=== PATIENT | female | born 1965 | race Caucasian/White ===

== ENCOUNTER 2018-03-10 02:18 | Inpatient (IN) ==
--- NOTE | 2018-03-10 02:38 | Emergency Department Note ---
Disposition Clinical Impression: Pneumoperitoneum, Intra-abdominal abscess Disposition: Admitted As Inpatient Condition: Serious Abdominal Pain HPI - General Chief Complaint: ED Abdominal Pain Stated Complaint: "Lower Abd Pain" Time Seen by Provider: 03/10/18 02:31 Source: patient, family Mode of arrival: private vehicle Limitations: no limitations Nursing Notes Reviewed: Yes Vital Signs Reviewed: Yes - History of Present Illness Pt Subjective Complaint: abdominal pain Onset (ago): month(s) (1-2 months of mild intermittent discomfort, significant pain began this evening) Consistency: constant (for past 2 hours) Location: diffuse, suprapubic Pain Severity: severe Pain Scale: 10 Quality: fullness Radiation: none Migration to: no migration Improves with: nothing Worsens with: nothing Context: other (unknown - no changes in diet, activity, meds. No supplements, no recent travel.) Associated symptoms: Reports: diarrhea (several episodes of watery stool this evening - no blood), chills, constipation. Denies: fever, dysuria Treatments prior to arrival: none - Related Data Allergies Allergy/AdvReac Type Severity Reaction Status Date / Time No Known Allergies Allergy Unverified 03/10/18 03:43 All systems ED: reviewed and negative except as stated. Review of Systems: As Per HPI Constitutional: Reports: chills. Denies: fever, weakness Cardiovascular: Denies: chest pain, palpitations, syncope Respiratory: Denies: dyspnea Gastrointestinal: Reports: as per HPI, abdominal pain, nausea, diarrhea. 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 Made a joke) - Head Head exam: atraumatic, normocephalic, normal inspection - Eye Eye exam: Present: normal appearance. Absent: scleral icterus, conjunctival injection, periorbital swelling - ENT ENT exam: mucous membranes dry - Neck Neck exam: Present: normal inspection - Respiratory Respiratory exam: Present: normal lung sounds bilaterally. Absent: respiratory distress - Cardiovascular Cardiovascular exam: Present: regular rate, normal rhythm - Abdominal Exam Abdominal exam: Present: soft, tenderness. Absent: distention, guarding, rebound, rigidity, ascites, mass, pulsatile mass Abdominal tenderness: Present: suprapubic, diffuse, moderate - Extremities Exam Extremities exam: Present: normal inspection - Neurological Exam Neurological exam: Present: alert, oriented X3, CN II-XII intact - Psychiatric Psychiatric exam: Present: normal affect, normal mood - Skin Skin exam: Present: warm, dry, intact, normal color Course Course Narrative: Otherwise healthy 52-year-old female presents from home for evaluation of abdominal pain. She states that it started around midnight. She was not sleeping at the time. States that she has had this pain off and on for about a month and was uncomfortable, so she had not fallen asleep yet. The pain continued to escalate so she came in for evaluation. She states, "I think I am just full of crap." She laughs and elaborates that she has had problems with constipation off and on for the past two months. Prior to that she had no bowel issues. She has had no change in diet, activity or medications. She has had a bilateral tubal ligation. No other abdominal surgeries. She has had no recent travel. She describes having several episodes of watery, non-bloody diarrhea this evening. No vomiting. Labs, fluids and meds ordered. Patient's pain increased. Fentanyl ordered. CT ordered. Case discussed with Dr. Mcgee. He evaluated the patient and agrees with the plan. Patient has leukocytosis 20 with prevelence of Neutrophils. BMP is normal except glucose of 168 - Na:134, K:3.9, Cl: 100, CO2: 23, BUN:17, Cr: 0.81, Glucose 168 LFTs pending - Consultations Consultation #1: Dr. Smith of [facility] called to discuss the CT abdomen and pelvis. Patient has free air from a ruptured diverticuli with an intra-abdominal abscess. Time: 04:13 Consultation #2: Case discussed with Dr. Cisneros. He states that he will be coming in to see the patient. He agrees with the plan to use Zosyn Time: 04:16 Consultation #3: Dr. Cisneros is at bedside. Vitals stable. Patient sitting up, watching TV, still able to smile and joke. Pain improved after meds. Time: 05:17 Vital Signs Temperature 98.5 F 03/10/18 02:22 Pulse Rate 94 03/10/18 02:22 Respiratory Rate 12 03/10/18 02:22 Blood Pressure 154/72 03/10/18 02:22 O2 Sat by Pulse Oximetry 98 03/10/18 02:22 Temperature 98.5 F 03/10/18 02:22 Pulse Rate 94 03/10/18 02:22 Respiratory Rate 12 03/10/18 02:22 Blood Pressure 154/72 03/10/18 02:22 O2 Sat by Pulse Oximetry 98 03/10/18 02:22 Oxygen Delivery Oxygen Delivery Room Air Abdominal Pain - Medical Records Medical records reviewed: Yes I reviewed the patient's medical records. - Lab Data Lab results reviewed: Yes I reviewed the patient's lab results. Lab results narrative: Laboratory Last Values WBC 20.8 K/mcL (4.3-11.1) H 03/10/18 02:39 RBC 5.00 M/mcL (3.82-4.97) H 03/10/18 02:39 Hgb 14.2 g/dL (11.5-15.4) 03/10/18 02:39 Hct 42.7 % (35.3-44.9) 03/10/18 02:39 MCV 85.4 fL (83.0-100.0) 03/10/18 02:39 MCH 28.4 pg (28.0-33.3) 03/10/18 02:39 MCHC 33.3 g/dL (31.6-35.5) 03/10/18 02:39 RDW 12.5 % (11.5-14.5) 03/10/18 02:39 Plt Count 366 K/mcL (140-400) 03/10/18 02:39 MPV 9.8 fL (9.4-12.4) 03/10/18 02:39 Immature Gran % 0.5 % (0-4) 03/10/18 02:39 Seg Neutrophils % 83.5 % 03/10/18 02:39 Lymphocytes % 8.5 % 03/10/18 02:39 Monocytes % 7.0 % 03/10/18 02:39 Eosinophils % 0.2 % 03/10/18 02:39 Basophils % 0.3 % 03/10/18 02:39 Neutrophils # 17.3 K/mcL (1.6-8.9) H 03/10/18 02:39 Lymphocytes # 1.8 K/mcL (0.6-4.6) 03/10/18 02:39 Monocytes # 1.5 K/mcL (0.0-1.3) H 03/10/18 02:39 Eosinophils # 0.0 K/mcL (0.0-0.6) 03/10/18 02:39 Basophils # 0.1 K/mcL (0.0-0.2) 03/10/18 02:39 Sodium 134 mEq/L (136-145) L 03/10/18 02:39 Potassium 3.9 mEq/L (3.5-5.1) 03/10/18 02:39 Chloride 100 mEq/L (98-107) 03/10/18 02:39 Carbon Dioxide 23 mEq/L (23-29) 03/10/18 02:39 BUN 17 mg/dL (6-20) 03/10/18 02:39 Creatinine 0.81 mg/dL (0.60-1.20) 03/10/18 02:39 Est GFR ( Amer) > 60 (> 60) 03/10/18 02:39 Est GFR (Non-Af Amer) > 60 (> 60) 03/10/18 02:39 BUN/Creatinine Ratio 21 (6-26) 03/10/18 02:39 Glucose 168 mg/dL (70-105) H 03/10/18 02:39 Calculated Osmolality 283 (280-300) 03/10/18 02:39 Calcium 9.1 mg/dL (8.6-10.3) 03/10/18 02:39 AST 19 Units/L (13-39) 03/10/18 02:39 ALT 33 Units/L (7-52) 03/10/18 02:39 Alkaline Phosphatase 158 Units/L (34-104) H 03/10/18 02:39 Serum Total Protein 7.9 g/dL (6.4-8.9) 03/10/18 02:39 Albumin 3.7 g/dL (3.5-5.7) 03/10/18 02:39 Globulin 4.2 g/dL (2.4-3.5) H 03/10/18 02:39 Albumin/Globulin Ratio 0.9 (1.1-2.2) L 03/10/18 02:39 Urine Color [place] (Yellow) A 03/10/18 02:53 Urine Clarity Clear (Clear) 03/10/18 02:53 Urine pH 6.0 pH Units (5.0-8.0) 03/10/18 02:53 Ur Specific [place] > 1.030 (1.010-1.025) H 03/10/18 02:53 Urine Protein 100 mg/dL (Neg-Trace) H 03/10/18 02:53 Urine Glucose (UA) Normal mg/dL (Normal) 03/10/18 02:53 Urine Ketones 40 mg/dL (Negative) H 03/10/18 02:53 Urine Blood Negative (Negative) 03/10/18 02:53 Urine Nitrite Positive (Negative) A 03/10/18 02:53 Urine Bilirubin Moderate (Negative) H 03/10/18 02:53 Urine Urobilinogen >=8.0 mg/dL (Normal) H 03/10/18 02:53 Ur Leukocyte Esterase Small (Negative) H 03/10/18 02:53 Urine Microscopic RBC 5-15 per hpf (0-3) H 03/10/18 02:53 Urine Microscopic WBC 15-30 per hpf (0-3) H 03/10/18 02:53 Ur Squamous Epith Cells Many per lpf (None-Few) H 03/10/18 02:53 Urine Bacteria Moderate per hpf (None-Few) H 03/10/18 02:53 Urine Mucus Many (Few) H 03/10/18 02:53 Ur Culture Indicated? NO. (NO) A 03/10/18 02:53 - Radiology Data Radiology results reviewed: Yes I reviewed the patient's radiology results. Abdomen/Pelvis CT 03/10/18 03:39 IMPRESSION: Pneumoperitoneum, most likely related to perforated sigmoid diverticulitis. There is a pelvic abscess posterior to the uterus. Critical results were called by Dr. Norbert Smith MD to July Aquino on 03/10/2018 at 04:11. D/ / Norbert Smith MD / Norbert Smith MD Interpreting Provider: Norbert Smith MD
[2018-03-10] MEDS ORDERED: 0.9 % Sodium Chloride 1,000 ML IVC ONE (02:40)
[2018-03-10] MEDS ORDERED: Ondansetron 4 MG/2 ML VIAL IVP ONE (02:40)
[2018-03-10] MEDS ORDERED: Ketorolac 30 MG/ML VIAL IVP ONE (02:40)
[2018-03-10 02:52] LABS: Basophils # 0.1 K/mcL (0.0-0.2); Basophils % 0.3 %; Eosinophils % 0.2 %; Hematocrit 42.7 % (35.3-44.9); Hemoglobin 14.2 g/dL (11.5-15.4); Immature Granulocytes % 0.5 % (0-4); Lymphocytes # 1.8 K/mcL (0.6-4.6); Lymphocytes % 8.5 %; Mean Corpuscular HGB Conc 33.3 g/dL (31.6-35.5); Mean Corpuscular Hemoglobin 28.4 pg (28.0-33.3); Mean Corpuscular Volume 85.4 fL (83.0-100.0); Mean Platelet Volume 9.8 fL (9.4-12.4); Monocytes # 1.5 K/mcL (0.0-1.3); Neutrophils # 17.3 K/mcL (1.6-8.9); Platelet Count 366 K/mcL (140-400); Red Cell Distribution Width 12.5 % (11.5-14.5); Segmented Neutrophils % 83.5 %
[2018-03-10 03:01] LABS: Bilirubin,Urine Moderate (Negative); Blood,Urine Negative (Negative); Clarity,Urine Clear (Clear); Color,Urine Orange (Yellow); Glucose,Urine (UA) Normal (Normal); Ketones,Urine 40 mg/dL (Negative); Leukocyte Esterase,Urine Small (Negative); Nitrite,Urine Positive (Negative); Protein,Urine 100 mg/dL (Neg-Trace); Specific Gravity,Urine > 1.030 (1.010-1.025); Urobilinogen,Urine >=8.0 mg/dL (Normal)
[2018-03-10 03:03] LABS: Bacteria,Urine Moderate per hpf (None-Few); Squamous Epithelial Cell,Urine Many per lpf (None-Few); WBC,Urine 15-30 per hpf (0-3)
[2018-03-10 03:16] LABS: Mucus,Urine Many (Few)
[2018-03-10] MEDS ORDERED: *HR* FentaNYL (PF) 200 MCG/4 ML SYRINGE IVP ONE (04:10)
[2018-03-10] MEDS ORDERED: *HR* FentaNYL (PF) 100 MCG/2 ML VIAL ONE ×2 (04:11→15:29)
[2018-03-10] MEDS ORDERED: Piperacillin/Tazobactam 4.5 GM in 0.9 % Sodium Chloride Mini Bag 100 ML IVPB ONE (04:13)
[2018-03-10 04:26] LABS: Alanine Aminotransferase 33 Units/L (7-52); Albumin 3.7 g/dL (3.5-5.7); Albumin/Globulin Ratio 0.9 (1.1-2.2); Alkaline Phosphatase 158 Units/L (34-104); Aspartate Amino Transferase 19 Units/L (13-39); BUN/Creatinine Ratio 21 (6-26); Blood Urea Nitrogen 17 mg/dL (6-20); Calcium 9.1 mg/dL (8.6-10.3); Carbon Dioxide 23 mEq/L (23-29); Chloride 100 mEq/L (98-107); Globulin 4.2 g/dL (2.4-3.5); Glucose 168 mg/dL (70-105); Osmolality,Calculated 283 (280-300); Potassium 3.9 mEq/L (3.5-5.1); Sodium 134 mEq/L (136-145); Total Protein 7.9 g/dL (6.4-8.9); eGFR For Non-African Americans > 60 (> 60)
[2018-03-10] MEDS ORDERED: Piperacillin/Tazobactam 3.375 GM in 0.9 % Sodium Chloride Mini Bag 100 ML IVPB ONE (04:30)
[2018-03-10] MEDS ORDERED: *HR* FentaNYL (PF) 100 MCG/2 ML VIAL IVP ONE ×3 (04:30→15:28)
[2018-03-10 05:23] LABS: Bilirubin,Direct 0.2 mg/dL (0.0-0.2); Bilirubin,Indirect 0.4 mg/dL (0.0-1.2); Bilirubin,Total 0.6 mg/dL (0.3-1.0)
--- NOTE | 2018-03-10 05:43 | General Surg History&Physical ---
Date of Encounter: 03/10/18 Time of Encounter: 05:20 Assessment and Plan (1) Colonic diverticular abscess Current Visit: Yes Status: Acute The assessment and plan as outlined above was discussed with the patient and/or family members who expressed understanding and agreement. All questions were answered. The patient appears to have a perforated diverticular abscess. She will be admitted to the hospital and treated with intravenous antibiotics. She will require CAT scan directed drainage of the abscess. If this is not possible, early Couch's procedure may be indicated. I shared this information with the patient and her spouse. History of Present Illness Chief complaint: Abdominal pain HPI: Ms. Cisneros is a 52 year old female Who is had abdominal discomfort for almost a month. She is had pressure in the left lower quadrant. The pressure has been worse with bowel movements. For the last 5 days, she has had shakes chills fever associated with left lower quadrant abdominal pain. She had worsening pain with bowel movements. Her last bowel movement was yesterday. She developed severe left lower quadrant abdominal pain and sought evaluation in emergency a CAT scan was ordered and diverticular abscess was identified surgery consultation was obtained and evaluated the patient in the emergency room The patient reports no previous colonoscopy and no previous hospitalizations. She denies rectal bleeding. She denies chronic constipation or changes with her bowel habits. She does have shakes chills or fever and is complaining bitterly of left lower quadrant abdominal pain. I personally reviewed the CAT scan area she has a large pelvic abscess below the sigmoid colon extending into the pelvis. There are dots of free air around the diaphragm and some extraluminal air in abscess cavity. Visible diverticuli are present in the sigmoid colon Past Med Surg Social Fam HX - Past Medical History Medical history: no medical history Psychiatric history: no psych history - Past Surgical History Additional surgical history: tubes tide - Social History Smoking Status: Never smoker Smokeless Tobacco Status: No Alcohol use: occasionally Drug use: none Medications and Allergies 3 Allergy/AdvReac Type Severity Reaction Status Date / Time No Known Allergies Allergy Unverified 03/10/18 03:43 Review of Systems All systems PM: The remainder of the systems were reviewed and are negative General Surgery Exam Initial Vital Signs Temp Pulse Resp BP Pulse Ox 98.5 F 94 12 154/72 98 03/10/18 02:22 03/10/18 02:22 03/10/18 02:22 03/10/18 02:22 03/10/18 02:22 - General physical appearance well developed, well nourished, severe pain, obese - Respiratory normal expansion, normal respiratory effort, clear to percussion, clear to auscultation - Cardiovascular Cardiovascular exam: Present: RRR, no murmurs/rubs/gallops - Abdomen Abdomen general surgery: Present: guarding, rebound Abdominal Tenderness: Present: LLQ, suprapubic - Neurologic Present: CN 2-12 grossly intact, normal coordination, normal sensation - Psychiatric Psychiatric general surgery: Present: appropriate, oriented to person, oriented to place, oriented to time, speech is normal, memory intact Results - Labs 03/10/18 02:39 03/10/18 02:39 Abnormal lab results WBC 20.8 K/mcL (4.3-11.1) H 03/10/18 02:39 RBC 5.00 M/mcL (3.82-4.97) H 03/10/18 02:39 Neutrophils # 17.3 K/mcL (1.6-8.9) H 03/10/18 02:39 Monocytes # 1.5 K/mcL (0.0-1.3) H 03/10/18 02:39 Sodium 134 mEq/L (136-145) L 03/10/18 02:39 Glucose 168 mg/dL (70-105) H 03/10/18 02:39 Alkaline Phosphatase 158 Units/L (34-104) H 03/10/18 02:39 Globulin 4.2 g/dL (2.4-3.5) H 03/10/18 02:39 Albumin/Globulin Ratio 0.9 (1.1-2.2) L 03/10/18 02:39 Urine Color [place] (Yellow) A 03/10/18 02:53 Ur Specific [place] > 1.030 (1.010-1.025) H 03/10/18 02:53 Urine Protein 100 mg/dL (Neg-Trace) H 03/10/18 02:53 Urine Ketones 40 mg/dL (Negative) H 03/10/18 02:53 Urine Nitrite Positive (Negative) A 03/10/18 02:53 Urine Bilirubin Moderate (Negative) H 03/10/18 02:53 Urine Urobilinogen >=8.0 mg/dL (Normal) H 03/10/18 02:53 Ur Leukocyte Esterase Small (Negative) H 03/10/18 02:53 Urine Microscopic RBC 5-15 per hpf (0-3) H 03/10/18 02:53 Urine Microscopic WBC 15-30 per hpf (0-3) H 18 02:53 Ur Squamous Epith Cells Many per lpf (None-Few) H 03/10/18 02:53 Urine Bacteria Moderate per hpf (None-Few) H 03/10/18 02:53 Urine Mucus Many (Few) H 03/10/18 02:53 Ur Culture Indicated? NO. (NO) A 03/10/18 02:53 All other labs normal. - Imaging CT scan - abdomen: image reviewed (I personally reviewed the CAT scan of the abdomen. Findings are consistent with pelvic abscess from perforated diverticulum. Small dots of free air or present around the diaphragm. Extraluminal free air is present in the abscess cavity)
[2018-03-10 05:46] LABS: INR 1.4; Prothrombin Time 15.3 Seconds (9.4-12.1)
[2018-03-10 05:48] LABS: Activated Partial Thrombo Time 32.8 Seconds (26.0-36.0)
[2018-03-10] MEDS ORDERED: *HR* Metoprolol 5 MG/5 ML VIAL IVP PRN ×3 (06:34→07:45)
[2018-03-10] MEDS ORDERED: *HR* OxyCODONE/APAP 10/325 TABLET PO ONE (06:35)
[2018-03-10] MEDS ORDERED: *HR* OxyCODONE/APAP 10/325 TABLET PO PRN (07:29)
[2018-03-10] MEDS: 0.9 % Sodium Chloride 1,000 ML IVC SCH ×2 (07:59→18:57)
[2018-03-10] MEDS: Ondansetron 4 MG/2 ML VIAL IVP PRN ×2 (07:59→16:37)
[2018-03-10] MEDS ORDERED: Piperacillin/Tazobactam 3.375 GM in 0.9 % Sodium Chloride Mini Bag 100 ML IVPB SCH (08:00)
[2018-03-10] MEDS: Piperacillin/Tazobactam 3.375 GM in 0.9 % Sodium Chloride Mini Bag 100 ML IVPB SCH ×2 (11:02→19:53)
[2018-03-10] MEDS ORDERED: *HR* Morphine 2 MG/ML SYRINGE IVP ONE (12:08)
[2018-03-10] MEDS ORDERED: 0.9 % Sodium Chloride 500 ML ONE (15:16)
[2018-03-10] MEDS ORDERED: *HR* Midazolam HCl 2 MG/2 ML VIAL ONE (15:28)
[2018-03-10] MEDS ORDERED: *HR* Midazolam HCl 2 MG/2 ML VIAL IVP ONE (15:28)
--- NOTE | 2018-03-10 15:28 | Pre-Sedation Evaluation ---
Pre-sedation evaluation - Pre-sedation checklist Date of procedure: 03/10/18 Procedure: percutaneous abscess drain Recent Vitals: Last Vital Signs Temp 99.0 F 03/10/18 12:04 Pulse 108 03/10/18 12:04 Resp 16 03/10/18 12:04 BP 153/94 03/10/18 12:04 Pulse Ox 100 03/10/18 12:04 H&P (including ROS) documented in medical record: Yes Previous reaction to sedatives/anesthetics: No Dietary Status: NPO after Midnight Airway Assessment: Patient can open mouth completely, TMJ function normal Dentition: No loose teeth or bridges Possible difficult airway: No ASA Classification *see protocol: CLASS II-Mild systemic disease Plan of Care: Pt appropriate candidate for procedure/moderate/conscious sedation Cardiac Registry (Cardio Only) - Functional Capacity - Clincal Frailty Scale
[2018-03-10] MEDS ORDERED: Isovue-370 500 ML INFUS..BTL IV ONE (15:40)
--- NOTE | 2018-03-10 16:12 | IR Procedure Note ---
Date of procedure: 03/10/18 Consent Obtained: Written consent Timeout: Correct patient and procedure verified, Correct site verified, Time out performed, Skin prep completed Local anesthetic: Lidocaine 1% Indications: perforated diverticulitis with abscess Procedure Performed: percutaneous abscess drain Was there an clinical lab assistant present: No Site/Technique: right transgluteal drainage Results/Findings: pus aspirated Estimated blood loss (cc): 0 Post Procedure Treatment Plan: drain to bulb Specimen: 5 cc pus
[2018-03-10] MEDS: *HR* OxyCODONE/APAP 10/325 TABLET PO PRN (16:34)
[2018-03-10] MEDS: OXYCODONE Oral CONC 10 MG/0.5 ML ORAL.SYG SL PRN (18:55)
[2018-03-10] MEDS ORDERED: Acetaminophen 325 MG TABLET PO PRN (19:24)
[2018-03-11] MEDS: *HR* OxyCODONE/APAP 10/325 TABLET PO PRN (02:18)
[2018-03-11] MEDS: 0.9 % Sodium Chloride 1,000 ML IVC SCH ×2 (04:20→15:47)
[2018-03-11] MEDS: Piperacillin/Tazobactam 3.375 GM in 0.9 % Sodium Chloride Mini Bag 100 ML IVPB SCH ×3 (04:22→21:21)
[2018-03-11 05:58] LABS: Hematocrit 38.2 % (35.3-44.9); Mean Corpuscular HGB Conc 31.7 g/dL (31.6-35.5); Mean Corpuscular Hemoglobin 27.8 pg (28.0-33.3); Mean Corpuscular Volume 87.8 fL (83.0-100.0); Platelet Count 324 K/mcL (140-400); Red Blood Count 4.35 M/mcL (3.82-4.97); Red Cell Distribution Width 13.2 % (11.5-14.5)
[2018-03-11 06:43] LABS: Hemoglobin 12.1 g/dL (11.5-15.4)
[2018-03-11 06:54] LABS: BUN/Creatinine Ratio 25 (6-26); Blood Urea Nitrogen 25 mg/dL (6-20); Carbon Dioxide 24 mEq/L (23-29); Chloride 106 mEq/L (98-107); Glucose 126 mg/dL (70-105); Osmolality,Calculated 294 (280-300); Potassium 4.5 mEq/L (3.5-5.1); Sodium 139 mEq/L (136-145); eGFR For Non-African Americans 57 (> 60)
[2018-03-11 08:07] LABS: Acinetobacter baumannii by PCR Not Detected (Not Detect); Candida albicans by PCR Not Detected (Not Detect); Candida glabrata by PCR Not Detected (Not Detect); Candida krusei by PCR Not Detected (Not Detect); Candida parapsilosis by PCR Not Detected (Not Detect); Candida tropicalis by PCR Not Detected (Not Detect); Enterobacter cloacae Cmplx PCR Not Detected (Not Detect); Enterobacteriaceae by PCR Not Detected (Not Detect); Enterococcus by PCR Not Detected (Not Detect); Escherichia coli by PCR Not Detected (Not Detect); Klebsiella oxytoca by PCR Not Detected (Not Detect); Klebsiella pneumoniae by PCR Not Detected (Not Detect); Proteus by PCR Not Detected (Not Detect); Pseudomonas aeruginosa by PCR Not Detected (Not Detect); Serratia marcescens by PCR Not Detected (Not Detect); Staphylococcus aureus by PCR Not Detected (Not Detect); Staphylococcus by PCR Not Detected (Not Detect); Streptococcus agalactiae(B)PCR Not Detected (Not Detect); Streptococcus by PCR Not Detected (Not Detect); Streptococcus pneumoniae PCR Not Detected (Not Detect); Streptococcus pyogenes (A) PCR Not Detected (Not Detect); blaKPC Carbapenem-Resist Gene Not Detected (Not Detect); mecA Methicillin-Resist Gene Not Detected (Not Detect); vanA/B Vancomycin-Resist Genes Not Detected (Not Detect)
[2018-03-11 08:29] LABS: Calcium 8.8 mg/dL (8.6-10.3)
[2018-03-11 08:48] LABS: Lymphocytes # 0.7 K/mcL (0.6-4.6); Neutrophils # 15.3 K/mcL (1.6-8.9); Reactive Lymphocytes Present (Not Present)
[2018-03-11 08:49] LABS: Platelet Estimate Normal (Normal)
[2018-03-11] MEDS ORDERED: OXYCODONE Oral CONC 10 MG/0.5 ML ORAL.SYG SL PRN (09:02)
--- NOTE | 2018-03-11 09:10 | General Surgery Progress Note ---
<Phyllis Rosa - Last Filed: 03/11/18 09:05> Date of Encounter: 03/11/18 Time of Encounter: 07:15 - Assessment and Plan (1) Perforation of sigmoid colon due to diverticulitis Current Visit: Yes Status: Acute Pneumoperitoneum, most likely related to perforated sigmoid diverticulitis with notable pelvic abscess posterior to the uterus S/P posterior IR drain placement on 03/10/2018. She states her abdominal discomfort is significantly improved after having the drain placed. She reports pain has decreased from an 8 down to a 2. She is afebrile, exam is as expected with resolution of involuntary guarding but some tenderness remains. She is requesting to ambulate in shower which is most appropriate. Plan: -continue IV antibiotics for at least another 48 hours -Limited clear liquid diet, no carbonation, did not advance today -continue IV fluids, supportive care, and discomfort management -May saline lock IV to ambulate and shower -do not let HUMBERTO drain Dangle while patient is in the shower. Suspend the HUMBERTO on a lanyard or other such device while showering. -Stop EP CDs and apply knee-high Brian hose after patient showers. Start heparin 5000 units sub Q BID today -out of bed to chair for all trays including clear liquid trays 3 times daily -ambulate at least TID -incentive spirometry 10 times every hour while awake -consult dietitian for low fiber diet (6 weeks) then diverticulitis diet. Interval plans for follow-up in the office in approximately 6 weeks for colonoscopy -bedside RN to provide education regarding diverticulitis, and signs or symptoms for which to return -continue hospital care as above (2) Colonic diverticular abscess Current Visit: Yes Status: Acute see above Subjective Patient reports: no new complaints, feels better, still having pain, pain is less, voiding w/o difficulty, flatus, no bowel movement, afebrile Narrative: Rosanna states her pain has decreased from an 8 to a 2. She requests to be able to shower and walk. Objective Vital Signs - Last 8 Hours Temp Pulse Resp BP Pulse Ox 03/11/18 07:56 89 03/11/18 07:21 99.2 F 115 18 135/86 89 03/11/18 03:45 98.5 F 104 16 124/81 96 Intake and Output 03/10/18 03/11/18 03/11/18 23:59 07:59 15:59 Intake Total 375 / 375 1020 / 1020 Output Total 0 / 0 Balance 375 / 375 1020 / 1020 Intake: IV Fluids 375 / 375 1000 / 1000 0.9 % Sodium Chloride 1,000 ML 275 / 275 1000 / 1000 @ 100 mls/hr IVC .Q10H [facility] Rx#: [id number] Zosyn 3.375 GM In 0.9 % Sodium 100 / 100 Chloride (Mini-Bag +) 100 ML @ 25 mls/hr IVPB Q8H PETRONA Rx#: [id number] Oral 0 / 0 Output: Urine 0 / 0 Other: # Voids 1 Weight 100.6 kg - General physical appearance well nourished, no distress - Eyes normal ocular movement - ENT normal nares, normal mucosa - Neck Neck exam: trachea midline - Respiratory normal expansion, normal respiratory effort, clear to auscultation - Cardiovascular Cardiovascular exam: Present: RRR - Abdomen Abdomen: Present: bowel sounds present, soft, tender (but improved. involuntary guarding resolved) Hernia: none - Integumentary no rash, no growths - Neurologic normal coordination, normal sensation - Musculoskeletal normal gait, normal posture - Psychiatric oriented to time, oriented to person, oriented to place, speech is normal - Labs 03/11/18 05:38 03/11/18 05:38 Diabetes panel 03/11/18 Range/Units 05:38 Sodium 139 (136-145) mEq/L Potassium 4.5 (3.5-5.1) mEq/L Chloride 106 (98-107) mEq/L Carbon Dioxide 24 (23-29) mEq/L BUN 25 H (6-20) mg/dL Creatinine 1.01 (0.60-1.20) mg/dL Glucose 126 H (70-105) mg/dL Calcium 8.8 (8.6-10.3) mg/dL Calcium panel 03/11/18 Range/Units 05:38 Calcium 8.8 (8.6-10.3) mg/dL Pituitary panel 03/11/18 Range/Units 05:38 Sodium 139 (136-145) mEq/L Potassium 4.5 (3.5-5.1) mEq/L Chloride 106 (98-107) mEq/L Carbon Dioxide 24 (23-29) mEq/L BUN 25 H (6-20) mg/dL Creatinine 1.01 (0.60-1.20) mg/dL Glucose 126 H (70-105) mg/dL Calcium 8.8 (8.6-10.3) mg/dL Adrenal panel 03/11/18 Range/Units 05:38 Sodium 139 (136-145) mEq/L Potassium 4.5 (3.5-5.1) mEq/L Chloride 106 (98-107) mEq/L Carbon Dioxide 24 (23-29) mEq/L BUN 25 H (6-20) mg/dL Creatinine 1.01 (0.60-1.20) mg/dL Glucose 126 H (70-105) mg/dL Calcium 8.8 (8.6-10.3) mg/dL - Imaging CT scan - abdomen: report reviewed CT scan - pelvis: report reviewed Consult Discharge Plan - Plan Referrals: NONE,PCP [Primary Care Provider] - <Johnson Cisneros - Last Filed: 03/11/18 14:59> Date of Encounter: 03/11/18 - Assessment and Plan (1) Colonic diverticular abscess Current Visit: Yes Status: Acute Objective Vital Signs - Last 8 Hours Temp Pulse Resp BP Pulse Ox 03/11/18 10:25 99.6 F 110 16 139/85 98 03/11/18 07:56 89 03/11/18 07:21 99.2 F 115 18 135/86 89 Intake and Output 03/10/18 03/11/18 03/11/18 23:59 07:59 15:59 Intake Total 375 / 375 1020 / 1020 200 / 200 Output Total 0 / 0 Balance 375 / 375 1020 / 1020 200 / 200 Intake: IV Fluids 375 / 375 1000 / 1000 200 / 200 0.9 % Sodium Chloride 1,000 ML 275 / 275 1000 / 1000 @ 100 mls/hr IVC .Q10H [facility] Rx#: [id number] Ofirmev 1,000 mg/100 ml 1,000 100 / 100 mg In 100 ml @ 400 mls/hr IVPB Q6HR [facility] Rx#:[id number] Zosyn 3.375 GM In 0.9 % Sodium 100 / 100 100 / 100 Chloride (Mini-Bag +) 100 ML @ 25 mls/hr IVPB Q8H [facility] Rx#: [id number] Oral 0 / 0 Output: Urine 0 / 0 Other: Meal Lunch Percent of Meal Consumed 50% # Voids 1 Weight 100.6 kg - Labs 03/11/18 05:38 03/11/18 05:38 Diabetes panel 03/11/18 Range/Units 05:38 Sodium 139 (136-145) mEq/L Potassium 4.5 (3.5-5.1) mEq/L Chloride 106 (98-107) mEq/L Carbon Dioxide 24 (23-29) mEq/L BUN 25 H (6-20) mg/dL Creatinine 1.01 (0.60-1.20) mg/dL Glucose 126 H (70-105) mg/dL Calcium 8.8 (8.6-10.3) mg/dL Calcium panel 03/11/18 Range/Units 05:38 Calcium 8.8 (8.6-10.3) mg/dL Pituitary panel 03/11/18 Range/Units 05:38 Sodium 139 (136-145) mEq/L Potassium 4.5 (3.5-5.1) mEq/L Chloride 106 (98-107) mEq/L Carbon Dioxide 24 (23-29) mEq/L BUN 25 H (6-20) mg/dL Creatinine 1.01 (0.60-1.20) mg/dL Glucose 126 H (70-105) mg/dL Calcium 8.8 (8.6-10.3) mg/dL Adrenal panel 03/11/18 Range/Units 05:38 Sodium 139 (136-145) mEq/L Potassium 4.5 (3.5-5.1) mEq/L Chloride 106 (98-107) mEq/L Carbon Dioxide 24 (23-29) mEq/L BUN 25 H (6-20) mg/dL Creatinine 1.01 (0.60-1.20) mg/dL Glucose 126 H (70-105) mg/dL Calcium 8.8 (8.6-10.3) mg/dL - Attending Attestation I examined this patient and my medical decision-making was reviewed with the Resident Physician. I agree with the documented findings, disposition and treatment plan as described except to the extent set forth below. The patient is seen and evaluated on morning rounds with the resident and the clinical nurse practitioner. Her pain has dropped from an 8 to a 3. Her white blood cell count has dropped to 17,000. We will plan continued IV antibiotic therapy and CAT scan drainage. Couch's procedure for treatment failure. Johnson Cisneros MD FACS
[2018-03-11] MEDS: Acetaminophen IV 1,000 MG/100 ML INFUS..BTL IVPB SCH ×2 (11:30→17:31)
[2018-03-11] MEDS: OXYCODONE Oral CONC 10 MG/0.5 ML ORAL.SYG SL PRN ×2 (11:32→22:28)
[2018-03-11] MEDS: *HR* Heparin 5,000 UNIT/ML VIAL SQ SCH ×2 (17:39→19:05)
--- NOTE | 2018-03-11 18:51 | Internal Medicine Consult Note ---
Date of Encounter: 03/11/18 Time of Encounter: 18:45 - Assessment and plan (1) Shortness of breath Current Visit: Yes Status: Acute Assessment and plan: Patient has shortness of breath but the risk factor of PE including immobilization - Has associated chest pain with deep breathing. - Chest x-ray does not completely explain her shortness of breath. - We will get CT chest with IV contrast to rule out PE given high likelihood of PE. Mild elevation in creatinine. Ins and outs not documented well. Patient is urinating well 3-4 times a day. Currently not on IV fluids. We will start patient on 100 mL of and S now and continue to finish 1 L at 125 mL an hour. - Continue incentive spirometry. Patient did mention that she did not do spirometry before. Some hemidiaphragm from elevation on the right, however non- congruent with patient's intensity of shortness of breath. - Less likely to be due to pneumonia. Patient already on Zosyn which should cover as well for pneumonia. - Continue supplemental oxygen to maintain oxygen saturation of 92. - We will need IV anticoagulation if has PE. Discussed with patient who agrees. (2) Intra-abdominal abscess Current Visit: Yes Status: Acute Assessment and plan: - Management as per surgery - Continue IV Zosyn (3) Perforation of sigmoid colon due to diverticulitis Current Visit: Yes Status: Acute Assessment and plan: As above - Time Spent With Patient Total time spent is greater than 50% in coordination of care (as documented) at patient's floor/unit and/or counseling patient: Internal Medicine - CN: HPI - Data of Consult Requesting Physician: Johnson Cisneros MD - Consult Narrative Reason for consult: Shortness of breath History of present illness: Ms. Cisneros is a 52 year old female with no significant past medical history was admitted due to abdominal discomfort and was found to have perforated diverticulitis and diverticular abscess. Patient had IR guided drainage of the abscess and has a HUMBERTO drain in place. Consult was placed by surgery for complaint of shortness of breath. Patient has been having some shortness of breath since his admission however she mentioned that was mainly due to pain. Currently sees mostly pain-free. Her current shortness of breath started yesterday which she forgot to mention this morning to the surgeon. Patient is short of breath at rest as well as with ambulation. Patient's saturation about 15-20 minutes ago was 90% on room air. Currently on nasal cannula. Complains of chest pain on taking deep breath in the center of her chest. Nonradiating. Had some chills and that defervesces after receiving acetaminophen. She had blood cultures positive for gram-negative chris and is currently on Zosyn. Chest x-ray was done which was of poor quality with low lung volume. Some suspicion of elevated right hemidiaphragm with possible effusion. no congestion noted. No signs of infiltrates were noted. Patient short of breath during interview. Of note patient has been bedbound before for at least 4-5 days due to pain related to her abscess. Past Med Surg Social Fam HX - Past Medical History Medical history: no medical history Psychiatric history: no psych history - Past Surgical History Additional surgical history: tubes tide - Social History Smoking Status: Never smoker Smokeless Tobacco Status: No Alcohol use: occasionally Drug use: none All systems: reviewed and no additional remarkable complaints except as stated Review of systems: HPI Internal Medicine - CN: Meds No Known Home Drugs 03/10/18 [History] 3 Allergy/AdvReac Type Severity Reaction Status Date / Time No Known Allergies Allergy Verified 03/10/18 08:00 Hospitalist - CN: Exam - Constitutional Vitals: Temp Pulse Resp BP Pulse Ox 99.4 F 105 16 145/84 91 03/11/18 16:09 03/11/18 16:09 03/11/18 16:09 03/11/18 16:09 03/11/18 16:09 General appearance IM: Present: mild distress, A&O X 3 Exam: Constitutional: Vitals as noted. Conversant. In mild-moderate Distress. Well grommed. Obese. No obvious deformities. Eyes exam: Sclera white, conjunctiva clear, no lid lag, PEARLA. ENT exam: Grossly normal hearing. Nasophargeal and Oropharyngeal exam unremarkable. Moist mucus membranes. No JVD, carotid bruit, no cervical lymphadenopathy. no thyromegaly or mass. Respiratory exam: Clear to auscultation bilaterally. Tachypnea,. RR of 25-27. Has accessory muscle use. No rales, rhonchi or wheezes or bronchial sounds. Cardiovascular exam: RRR, +S1, +S2. no murmur, gallop, rubs. No chest wall tenderness GI/Abdominal exam: HUMBERTO drain in place. soft, no peritoneal signs. no orgenomegaly or mass appreciated. no hernia. Musculoskeletal exam: full ROM, no atrophy or deformity noted. no edema or cynosis, warm, pulses palpable and symmetrical in UE/LE. no calf tenderness. Neurological exam: AO X3, CN II-XII grossly intact, grossly normal motor and sensory exam. Skin exam: No skin rash, leseions or ulcers noted. no purpura or ecchymosis. Pych: Good insight and judgement. Intact memory. AOx3. Mood and affect Internal Medicine - CN: Reslt - Labs CBC & Chem 7: 03/11/18 05:38 03/11/18 05:38 Labs: Short CBC 03/11/18 Range/Units 05:38 WBC 17.0 H (4.3-11.1) K/mcL Hgb 12.1 D (11.5-15.4) g/dL Hct 38.2 (35.3-44.9) % Plt Count 324 (140-400) K/mcL Neutrophils # 15.3 H (1.6-8.9) K/mcL BMP 03/11/18 05:38 Sodium 139 Potassium 4.5 Chloride 106 Carbon Dioxide 24 BUN 25 H Creatinine 1.01 Glucose 126 H Calcium 8.8 - ABG Interpretation ABG results: PT/INR, D-dimer PT 15.3 Seconds (9.4-12.1) H 03/10/18 05:31 - Impressions Impressions Chest X-Ray 03/11/18 17:54 IMPRESSION: 1. Low lung volumes. 2. Elevation of the right hemidiaphragm with mild right basilar opacification. 3. There may be a right pleural effusion. D/ / Ventura Sams MD / Ventura Sams MD Interpreting Provider: Ventura Sams MD Consult Discharge Plan - Plan Referrals: NONE,PCP [Primary Care Provider] -
[2018-03-11] MEDS ORDERED: Isovue-370 500 ML INFUS..BTL IV ONE (19:51)
[2018-03-11] MEDS: Ondansetron 4 MG/2 ML VIAL IVP PRN (22:27)
[2018-03-12] MEDS: 0.9 % Sodium Chloride 1,000 ML IVC SCH ×5 (01:20→17:32)
[2018-03-12] MEDS: Acetaminophen IV 1,000 MG/100 ML INFUS..BTL IVPB SCH ×2 (01:20→06:16)
[2018-03-12] MEDS: Piperacillin/Tazobactam 3.375 GM in 0.9 % Sodium Chloride Mini Bag 100 ML IVPB SCH ×3 (04:48→20:16)
[2018-03-12] MEDS: *HR* Heparin 5,000 UNIT/ML VIAL SQ SCH ×2 (04:55→17:35)
[2018-03-12 05:45] LABS: Hematocrit 35.2 % (35.3-44.9); Hemoglobin 11.3 g/dL (11.5-15.4); Mean Corpuscular HGB Conc 32.1 g/dL (31.6-35.5); Mean Corpuscular Hemoglobin 28.5 pg (28.0-33.3); Mean Corpuscular Volume 88.9 fL (83.0-100.0); Mean Platelet Volume 10.1 fL (9.4-12.4); Platelet Count 307 K/mcL (140-400); Red Blood Count 3.96 M/mcL (3.82-4.97); Red Cell Distribution Width 13.4 % (11.5-14.5)
[2018-03-12 06:07] LABS: Eosinophils # 0.7 K/mcL (0.0-0.6); Lymphocytes # 2.9 K/mcL (0.6-4.6); Monocytes # 0.7 K/mcL (0.0-1.3); Platelet Estimate Normal (Normal); Toxic Granulation Present (Not Present)
[2018-03-12 06:57] LABS: BUN/Creatinine Ratio 28 (6-26); Blood Urea Nitrogen 20 mg/dL (6-20); Calcium 8.8 mg/dL (8.6-10.3); Carbon Dioxide 24 mEq/L (23-29); Chloride 106 mEq/L (98-107); Glucose 108 mg/dL (70-105); Osmolality,Calculated 285 (280-300); Potassium 3.7 mEq/L (3.5-5.1); Sodium 136 mEq/L (136-145); eGFR For Non-African Americans > 60 (> 60)
[2018-03-12] MEDS ORDERED: Acetaminophen 325 MG TABLET PO PRN (08:50)
--- NOTE | 2018-03-12 09:12 | General Surgery Progress Note ---
<Maurilio Todd - Last Filed: 03/12/18 10:06> Date of Encounter: 03/12/18 Time of Encounter: 08:30 - Assessment and Plan (1) Colonic diverticular abscess Current Visit: Yes Status: Acute No change in Assessment from 03/11/18. Abdominal pain has lessened to mild tenderness without involuntary guarding. Patient requests to take tylenol as needed for fever which is appropriate if fever is above 101 degrees. Plan: -Continue IV antibiotics -Continue IV fluids,supportive care and discomfort management -Continue HUMBERTO drain. Make sure HUMBERTO drain is not dangling while in shower -maintain limited clear liquid diet, no carbonation -out of bed to chair for all trays including clear liquid tray 3 times daily -continue incentive spirometry 10 times every hour while awake -may saline lock IV to ambulate and shower -continue knee high hal hose and heparin 5000 units sub Q BID daily -ambulate at least TID -a pelvis CT w/o contrast will be ordered 03/15/18 (2) Perforation of sigmoid colon due to diverticulitis Current Visit: Yes Status: Acute See above for plan. Subjective Patient reports: no new complaints, still having pain, pain is less, tolerating liquids well, voiding w/o difficulty, flatus, no bowel movement, fever (has been taking tylenol prn) Narrative: Rosanna continues to state her pain as a 2. She is now showering and walking. Objective Vital Signs - Last 8 Hours Temp Pulse Resp BP Pulse Ox 03/12/18 07:17 98.6 F 91 17 121/76 92 03/12/18 04:10 98.3 F 93 16 145/81 98 Intake and Output 03/11/18 03/12/18 03/12/18 23:59 07:59 15:59 Intake Total 100 / 100 1400 / 1400 Output Total 528 / 528 200 / 200 Balance 100 / 100 872 / 872 -200 / -200 Intake: IV Fluids 100 / 100 1200 / 1200 0.9 % Sodium Chloride 1,000 ML 1000 / 1000 @ 100 mls/hr IVC .Q10H [facility] Rx#: [id number] Ofirmev 1,000 mg/100 ml 1,000 100 / 100 100 / 100 mg In 100 ml @ 400 mls/hr IVPB Q6HR [facility] Rx#:[id number] Zosyn 3.375 GM In 0.9 % Sodium 100 / 100 Chloride (Mini-Bag +) 100 ML @ 25 mls/hr IVPB Q8H [facility] Rx#: [id number] Oral 200 / 200 Output: Urine 525 / 525 200 / 200 Wound Drainage 3 / 3 Left Buttock 3 / 3 Other: # Bowel Movements 1 Weight 232 kg Patient Weight 03/12/18 23:59 Weight 232 kg - General physical appearance moderate pain - Eyes PERRL, normal ocular movement - ENT normal pinna, normal nares, normal mucosa, no hearing loss, no congestion - Neck Neck exam: trachea midline - Respiratory normal expansion, normal respiratory effort, clear to percussion, clear to auscultation - Cardiovascular Cardiovascular exam: Present: RRR - Abdomen Abdomen: Present: bowel sounds present, soft, non tender Abdominal Tenderness: RLQ - Integumentary no rash, no abnormal pigmentation - Neurologic normal coordination, normal sensation - Musculoskeletal normal gait - Psychiatric oriented to time, oriented to person, oriented to place, speech is normal, memory intact - Labs 03/12/18 05:30 03/12/18 05:30 Diabetes panel 03/12/18 Range/Units 05:30 Sodium 136 (136-145) mEq/L Potassium 3.7 (3.5-5.1) mEq/L Chloride 106 (98-107) mEq/L Carbon Dioxide 24 (23-29) mEq/L BUN 20 (6-20) mg/dL Creatinine 0.71 (0.60-1.20) mg/dL Glucose 108 H (70-105) mg/dL Calcium 8.8 (8.6-10.3) mg/dL Calcium panel 03/12/18 Range/Units 05:30 Calcium 8.8 (8.6-10.3) mg/dL Pituitary panel 03/12/18 Range/Units 05:30 Sodium 136 (136-145) mEq/L Potassium 3.7 (3.5-5.1) mEq/L Chloride 106 (98-107) mEq/L Carbon Dioxide 24 (23-29) mEq/L BUN 20 (6-20) mg/dL Creatinine 0.71 (0.60-1.20) mg/dL Glucose 108 H (70-105) mg/dL Calcium 8.8 (8.6-10.3) mg/dL Adrenal panel 03/12/18 Range/Units 05:30 Sodium 136 (136-145) mEq/L Potassium 3.7 (3.5-5.1) mEq/L Chloride 106 (98-107) mEq/L Carbon Dioxide 24 (23-29) mEq/L BUN 20 (6-20) mg/dL Creatinine 0.71 (0.60-1.20) mg/dL Glucose 108 H (70-105) mg/dL Calcium 8.8 (8.6-10.3) mg/dL Consult Discharge Plan - Plan Referrals: NONE,PCP [Primary Care Provider] - <Johnson Cisneros - Last Filed: 03/12/18 10:50> Date of Encounter: 03/12/18 - Assessment and Plan (1) Colonic diverticular abscess Current Visit: Yes Status: Acute Objective Vital Signs - Last 8 Hours Temp Pulse Resp BP Pulse Ox 03/12/18 07:17 98.6 F 91 17 121/76 92 03/12/18 04:10 98.3 F 93 16 145/81 98 Intake and Output 03/11/18 03/12/18 03/12/18 23:59 07:59 15:59 Intake Total 100 / 100 1500 / 1500 1220 / 1220 Output Total 528 / 528 355 / 355 Balance 100 / 100 972 / 972 865 / 865 Intake: IV Fluids 100 / 100 1300 / 1300 1100 / 1100 0.9 % Sodium Chloride 1,000 ML 1000 / 1000 1000 / 1000 @ 125 mls/hr IVC .Q8H [facility] Rx#: [id number] Ofirmev 1,000 mg/100 ml 1,000 100 / 100 200 / 200 mg In 100 ml @ 400 mls/hr IVPB Q6HR [facility] Rx#:[id number] Zosyn 3.375 GM In 0.9 % Sodium 100 / 100 100 / 100 Chloride (Mini-Bag +) 100 ML @ 25 mls/hr IVPB Q8H [facility] Rx#: [id number] Oral 200 / 200 120 / 120 Output: Urine 525 / 525 350 / 350 Wound Drainage 3 / 3 5 / 5 Left Buttock 3 / 3 5 / 5 Other: Meal Breakfast Percent of Meal Consumed 0% # Bowel Movements 1 Weight 232 kg Patient Weight 03/12/18 23:59 Weight 232 kg - Labs 03/12/18 05:30 03/12/18 05:30 Diabetes panel 03/12/18 Range/Units 05:30 Sodium 136 (136-145) mEq/L Potassium 3.7 (3.5-5.1) mEq/L Chloride 106 (98-107) mEq/L Carbon Dioxide 24 (23-29) mEq/L BUN 20 (6-20) mg/dL Creatinine 0.71 (0.60-1.20) mg/dL Glucose 108 H (70-105) mg/dL Calcium 8.8 (8.6-10.3) mg/dL Calcium panel 03/12/18 Range/Units 05:30 Calcium 8.8 (8.6-10.3) mg/dL Pituitary panel 03/12/18 Range/Units 05:30 Sodium 136 (136-145) mEq/L Potassium 3.7 (3.5-5.1) mEq/L Chloride 106 (98-107) mEq/L Carbon Dioxide 24 (23-29) mEq/L BUN 20 (6-20) mg/dL Creatinine 0.71 (0.60-1.20) mg/dL Glucose 108 H (70-105) mg/dL Calcium 8.8 (8.6-10.3) mg/dL Adrenal panel 03/12/18 Range/Units 05:30 Sodium 136 (136-145) mEq/L Potassium 3.7 (3.5-5.1) mEq/L Chloride 106 (98-107) mEq/L Carbon Dioxide 24 (23-29) mEq/L BUN 20 (6-20) mg/dL Creatinine 0.71 (0.60-1.20) mg/dL Glucose 108 H (70-105) mg/dL Calcium 8.8 (8.6-10.3) mg/dL - Attending Attestation I examined this patient and my medical decision-making was reviewed with the Resident Physician. I agree with the documented findings, disposition and treatment plan as described except to the extent set forth below. The patient is seen and evaluated on morning rounds with resident. The patient is not complaining of any pain. Her white blood cell count went up slightly to 18,000. Continue antibiotics and CAT scan drain. I will reevaluate her on Thursday. If she is feeling therapy she may require Couch's procedure Johnson Cisneros MD FACWS
[2018-03-12] MEDS: Pantoprazole 40 MG VIAL IVP SCH ×2 (09:46→09:49)
--- NOTE | 2018-03-12 13:32 | Internal Med Progress Note ---
Hospitalist Progress Note - Encounter Date of Encounter: 03/12/18 Time of Encounter: 09:45 - Subjective Interval History: Patient is feeling much better today. No shortness of breath. No chest pain. She states that incentive spirometry is helping her. No wheezing. - Exam Vitals: Temp Pulse Resp BP Pulse Ox 97.5 F L 95 18 133/82 95 03/12/18 11:03 03/12/18 11:03 03/12/18 11:03 03/12/18 11:03 03/12/18 11:03 Exam: General: Patient is alert, no acute distress, oriented x 3 Respiratory: Good respiratory effort. Normal breath sounds. Improved air entry bilaterally. No wheezing or crackles. Cardiovascular: Regular rate and rhythm. s1 and s2 normal No clicks, rubs, gallops, or murmurs. No pedal edema Abdomen: Abdomen is soft, nontender. Bowel sounds are present Musculoskeletal: Spontaneously moving all extremities - Assessment and Plan (1) Intra-abdominal abscess Current Visit: Yes Status: Acute Assessment and Plan: Management per surgery. Status post percutaneous drainage by IR. Wound culture growing gram-negative rods. Patient is on Zosyn. Surgery managing. (2) Perforation of sigmoid colon due to diverticulitis Current Visit: Yes Status: Acute Assessment and Plan: Surgery managing. Continue supportive care. IV Zosyn. Blood culture 1 set is positive for gram-negative rods. (3) Shortness of breath Current Visit: Yes Status: Acute Assessment and Plan: Improved. Continue incentive spirometry. Most likely from atelectasis. Right hemidiaphragm elevated per CHest CT. Encouraged incentive spirometry. Cannot rule out underlying pneumonia. Patient on Zosyn at this time. - Time Spent with Patient Total time spent is greater than 50% in coordination of care (as documented) at patient's floor/unit and/or counseling patient: Internal Medicine: Result - Labs CBC & Chem 7: 03/12/18 05:30 03/12/18 05:30 Labs: Short CBC 03/12/18 Range/Units 05:30 WBC 18.4 H (4.3-11.1) K/mcL Hgb 11.3 L (11.5-15.4) g/dL Hct 35.2 L (35.3-44.9) % Plt Count 307 (140-400) K/mcL Neutrophils # 14.0 H (1.6-8.9) K/mcL BMP 03/12/18 05:30 Sodium 136 Potassium 3.7 Chloride 106 Carbon Dioxide 24 BUN 20 Creatinine 0.71 Glucose 108 H Calcium 8.8 - ABG Interpretation ABG results: PT/INR, D-dimer PT 15.3 Seconds (9.4-12.1) H 03/10/18 05:31 - Impressions Impressions Chest X-Ray 03/11/18 17:54 IMPRESSION: 1. Low lung volumes. 2. Elevation of the right hemidiaphragm with mild right basilar opacification. 3. There may be a right pleural effusion. D/ / Ventura Sams MD / Ventura Sams MD Interpreting Provider: Ventura Sams MD Chest CTA 03/11/18 19:51 IMPRESSION: Limited evaluation of the subsegmental pulmonary arterial branches. No central or segmental pulmonary embolism is detected. Ground-glass opacity within the lungs on the repeat examination, which is probably secondary to low lung volumes with microatelectasis. Correlate with any clinical or laboratory evidence of pulmonary edema. There elevation the right hemidiaphragm with adjacent airspace disease. This raise the possibility of hemidiaphragmatic paralysis. Consider further evaluation with a sniff test. D/ / Claudio Garza MD / Claudio Garza MD Interpreting Provider: Claudio Garza MD Consult Discharge Plan - Plan Referrals: NONE,PCP [Primary Care Provider] -
[2018-03-12] MEDS: Ondansetron 4 MG/2 ML VIAL IVP PRN (14:38)
[2018-03-12] MEDS: OXYCODONE Oral CONC 10 MG/0.5 ML ORAL.SYG SL PRN (17:33)
[2018-03-13] MEDS: Albuterol 2.5 MG/3 ML NEBULIZER IH PRN (00:05)
[2018-03-13] MEDS: 0.9 % Sodium Chloride 1,000 ML IVC SCH (00:18)
[2018-03-13] MEDS: OXYCODONE Oral CONC 10 MG/0.5 ML ORAL.SYG SL PRN (01:31)
[2018-03-13] MEDS: Piperacillin/Tazobactam 3.375 GM in 0.9 % Sodium Chloride Mini Bag 100 ML IVPB SCH ×3 (04:13→19:57)
[2018-03-13] MEDS: *HR* Heparin 5,000 UNIT/ML VIAL SQ SCH ×2 (04:13→16:33)
[2018-03-13 04:29] LABS: Basophils % 0.2 %; Eosinophils % 0.2 %; Hemoglobin 10.7 g/dL (11.5-15.4); Lymphocytes # 1.9 K/mcL (0.6-4.6); Lymphocytes % 9.1 %; Mean Corpuscular HGB Conc 32.4 g/dL (31.6-35.5); Mean Corpuscular Hemoglobin 28.5 pg (28.0-33.3); Mean Corpuscular Volume 87.8 fL (83.0-100.0); Mean Platelet Volume 10.3 fL (9.4-12.4); Monocytes # 0.9 K/mcL (0.0-1.3); Monocytes % 4.5 %; Neutrophils # 17.9 K/mcL (1.6-8.9); Platelet Count 352 K/mcL (140-400); Red Blood Count 3.76 M/mcL (3.82-4.97); Red Cell Distribution Width 13.7 % (11.5-14.5)
[2018-03-13 04:53] LABS: BUN/Creatinine Ratio 26 (6-26); Blood Urea Nitrogen 16 mg/dL (6-20); Calcium 8.3 mg/dL (8.6-10.3); Carbon Dioxide 21 mEq/L (23-29); Chloride 106 mEq/L (98-107); Glucose 96 mg/dL (70-105); Magnesium 1.9 mg/dL (1.6-2.6); Osmolality,Calculated 285 (280-300); Phosphorous 1.9 mg/dL (2.7-4.5); Potassium 3.5 mEq/L (3.5-5.1); Sodium 137 mEq/L (136-145); eGFR For Non-African Americans > 60 (> 60)
--- NOTE | 2018-03-13 10:34 | General Surgery Progress Note ---
Date of Encounter: 03/13/18 Time of Encounter: 10:31 - Assessment and Plan (1) Perforation of sigmoid colon due to diverticulitis Current Visit: Yes Status: Acute 52F with perforated diverticulits s/p IR drainage; still with worsening leukocytosis despite having bowel function and no other causes of worsening WBC cont sips of clears cont IV abx activity as tolerated cont to trend WBC and temp possible CT scan on 03/15 Subjective Patient reports: no new complaints, feels better, pain is less, tolerating liquids well, afebrile Objective Vital Signs - Last 8 Hours Temp Pulse Resp BP Pulse Ox 03/13/18 06:48 98.3 F 106 18 156/93 92 03/13/18 04:29 98.6 F 106 18 125/79 92 Intake and Output 03/12/18 03/13/18 03/13/18 23:59 07:59 15:59 Intake Total 1770 / 1770 1300 / 1300 Output Total 200 / 200 600 / 600 400 / 400 Balance 1570 / 1570 700 / 700 -400 / -400 Intake: IV Fluids 1050 / 1050 1000 / 1000 0.9 % Sodium Chloride 1,000 ML 950 / 950 1000 / 1000 @ 125 mls/hr IVC .Q8H [facility] Rx#: [id number] Zosyn 3.375 GM In 0.9 % Sodium 100 / 100 0 / 0 Chloride (Mini-Bag +) 100 ML @ 25 mls/hr IVPB Q8H [facility] Rx#: [id number] Oral 720 / 720 300 / 300 Output: Urine 200 / 200 600 / 600 400 / 400 Wound Drainage 0 / 0 0 / 0 Left Buttock 0 / 0 0 / 0 Other: Meal Dinner # Voids 0 Weight 107.048 kg Patient Weight 03/13/18 23:59 Weight 107.048 kg - General physical appearance no distress - Respiratory normal expansion, normal respiratory effort - Cardiovascular Cardiovascular exam: Present: RRR - Abdomen Abdomen: Present: soft, non tender - Neurologic CN 2-12 grossly intact - Psychiatric oriented to time, oriented to person, oriented to place - Labs 03/13/18 03:50 03/13/18 03:50 Diabetes panel 03/13/18 Range/Units 03:50 Sodium 137 (136-145) mEq/L Potassium 3.5 (3.5-5.1) mEq/L Chloride 106 (98-107) mEq/L Carbon Dioxide 21 L (23-29) mEq/L BUN 16 (6-20) mg/dL Creatinine 0.62 (0.60-1.20) mg/dL Glucose 96 (70-105) mg/dL Calcium 8.3 L (8.6-10.3) mg/dL Calcium panel 03/13/18 Range/Units 03:50 Calcium 8.3 L (8.6-10.3) mg/dL Phosphorus 1.9 L (2.7-4.5) mg/dL Pituitary panel 03/13/18 Range/Units 03:50 Sodium 137 (136-145) mEq/L Potassium 3.5 (3.5-5.1) mEq/L Chloride 106 (98-107) mEq/L Carbon Dioxide 21 L (23-29) mEq/L BUN 16 (6-20) mg/dL Creatinine 0.62 (0.60-1.20) mg/dL Glucose 96 (70-105) mg/dL Calcium 8.3 L (8.6-10.3) mg/dL Adrenal panel 03/13/18 Range/Units 03:50 Sodium 137 (136-145) mEq/L Potassium 3.5 (3.5-5.1) mEq/L Chloride 106 (98-107) mEq/L Carbon Dioxide 21 L (23-29) mEq/L BUN 16 (6-20) mg/dL Creatinine 0.62 (0.60-1.20) mg/dL Glucose 96 (70-105) mg/dL Calcium 8.3 L (8.6-10.3) mg/dL Consult Discharge Plan - Plan Referrals: NONE,PCP [Primary Care Provider] -
[2018-03-13] MEDS: Pantoprazole 40 MG VIAL IVP SCH (11:11)
--- NOTE | 2018-03-13 13:31 | Internal Med Progress Note ---
Hospitalist Progress Note - Encounter Date of Encounter: 03/13/18 Time of Encounter: 10:15 - Subjective Interval History: Patient is sitting up in chair. No new complaints at this time. No shortness of breath. Denies any abdominal pain. Having bowel movements. No fever reported overnight. - Exam Vitals: Temp Pulse Resp BP Pulse Ox 98.7 F 103 18 167/98 94 03/13/18 10:44 03/13/18 10:44 03/13/18 10:44 03/13/18 10:44 03/13/18 10:44 Exam: General: Patient is alert, no acute distress, oriented x 3 Respiratory: Good respiratory effort. Normal breath sounds. No wheezing or crackles. Cardiovascular: Regular rate and rhythm. s1 and s2 normal No clicks, rubs, gallops, or murmurs. No pedal edema Abdomen: Abdomen is soft. Percutaneous drain in place. Musculoskeletal: Spontaneously moving all extremities Skin: warm, dry, intact. Neuro: Alert oriented x 3 normal cranial nerves, no focal deficits - Assessment and Plan (1) Intra-abdominal abscess Current Visit: Yes Status: Acute Assessment and Plan: Continue management with intravenous antibiotics. Percutaneous drain in place. Plan for CT scan on Thursday. Patient does have worsening leukocytosis. Continue IV Zosyn. Blood culture 1 out of 2 positive for gram-negative rods- most likely Escherichia coli. Cultures of drain fluid also positive for Escherichia coli which is pansensitive. Moderate risk for complications. We will repeat blood cultures. Follow surgery recommendations. (2) Perforation of sigmoid colon due to diverticulitis Current Visit: Yes Status: Acute Assessment and Plan: Management as above (3) Shortness of breath Current Visit: Yes Status: Resolved Assessment and Plan: Now resolved. With elevated right hemidiaphragm. Cannot rule out underlying obesity. Patient is however on Zosyn and reports resolving symptoms. No further workup needed at this time. Encourage incentive spirometry. - Time Spent with Patient Total time spent is greater than 50% in coordination of care (as documented) at patient's floor/unit and/or counseling patient: Internal Medicine: Result - Labs CBC & Chem 7: 03/13/18 03:50 03/13/18 03:50 Labs: Short CBC 03/13/18 Range/Units 03:50 WBC 21.1 H (4.3-11.1) K/mcL Hgb 10.7 L (11.5-15.4) g/dL Hct 33.0 L (35.3-44.9) % Plt Count 352 (140-400) K/mcL Neutrophils # 17.9 H (1.6-8.9) K/mcL BMP 03/13/18 03:50 Sodium 137 Potassium 3.5 Chloride 106 Carbon Dioxide 21 L BUN 16 Creatinine 0.62 Glucose 96 Calcium 8.3 L - ABG Interpretation ABG results: PT/INR, D-dimer PT 15.3 Seconds (9.4-12.1) H 03/10/18 05:31 Consult Discharge Plan - Plan Referrals: NONE,PCP [Primary Care Provider] -
[2018-03-13] MEDS: Melatonin 3 MG TABLET PO PRN (21:15)
[2018-03-14] MEDS: 0.9 % Sodium Chloride 1,000 ML IVC SCH ×2 (02:25→08:51)
[2018-03-14] MEDS: Piperacillin/Tazobactam 3.375 GM in 0.9 % Sodium Chloride Mini Bag 100 ML IVPB SCH ×3 (03:54→21:22)
[2018-03-14] MEDS: *HR* Heparin 5,000 UNIT/ML VIAL SQ SCH ×2 (05:38→17:32)
[2018-03-14 07:42] LABS: Hemoglobin 10.7 g/dL (11.5-15.4); Mean Corpuscular HGB Conc 32.4 g/dL (31.6-35.5); Mean Corpuscular Hemoglobin 27.8 pg (28.0-33.3); Mean Corpuscular Volume 85.7 fL (83.0-100.0); Mean Platelet Volume 10.1 fL (9.4-12.4); Platelet Count 397 K/mcL (140-400); Red Blood Count 3.85 M/mcL (3.82-4.97); Red Cell Distribution Width 13.9 % (11.5-14.5)
[2018-03-14 08:05] LABS: BUN/Creatinine Ratio 22 (6-26); Blood Urea Nitrogen 13 mg/dL (6-20); Calcium 8.3 mg/dL (8.6-10.3); Carbon Dioxide 25 mEq/L (23-29); Chloride 103 mEq/L (98-107); Glucose 107 mg/dL (70-105); Osmolality,Calculated 285 (280-300); Potassium 3.4 mEq/L (3.5-5.1); Sodium 137 mEq/L (136-145); eGFR For Non-African Americans > 60 (> 60)
[2018-03-14 08:33] LABS: Eosinophils # 0.6 K/mcL (0.0-0.6); Lymphocytes # 3.2 K/mcL (0.6-4.6); Monocytes # 0.6 K/mcL (0.0-1.3); Neutrophils # 10.2 K/mcL (1.6-8.9)
[2018-03-14 08:34] LABS: Anisocytosis 1+ (Not Present); Platelet Estimate Normal (Normal)
[2018-03-14] MEDS: Ondansetron 4 MG/2 ML VIAL IVP PRN ×3 (08:51→21:24)
[2018-03-14] MEDS: Pantoprazole 40 MG VIAL IVP SCH (08:51)
[2018-03-14] MEDS: *HR* Metoprolol 5 MG/5 ML VIAL IVP SCH ×2 (11:34→17:32)
[2018-03-14] MEDS: 0.9 % Sodium Chloride w KCl 20 MEQ/1,000 ML MLS IVC SCH (11:43)
--- NOTE | 2018-03-14 12:40 | General Surgery Progress Note ---
<Skip Miller R - Last Filed: 03/14/18 12:38> Date of Encounter: 03/14/18 Time of Encounter: 08:35 - Assessment and Plan (1) Perforation of sigmoid colon due to diverticulitis Current Visit: Yes Status: Acute WBC improved today. Patient reports improvement in pain. Vital signs remain within normal limits, afebrile Plan: Continue limited clears Continue IV antibiotics Repeat CT scan in the a.m. Continue drain management Comfort care pain management Activity as tolerated GI and DVT prophylaxis Further surgical recommendations pending repeat CT findings Follow a.m. labs Subjective Patient reports: no new complaints, pain is less, tolerating liquids well, voiding w/o difficulty, flatus, bowel movement, afebrile Narrative: Pain remains less. Bowel movements without visible blood. Denies nausea or vomiting. Reports significant improvement in shortness of breath since IV fluids were stopped. Objective Vital Signs - Last 8 Hours Temp Pulse Resp BP Pulse Ox 03/14/18 10:41 98.3 F 87 16 145/85 95 03/14/18 07:12 98.7 F 96 16 162/97 92 03/14/18 05:11 99.3 F 103 15 161/94 93 Intake and Output 03/13/18 03/14/18 03/14/18 23:59 07:59 15:59 Intake Total 440 / 440 500 / 500 Output Total 400 / 400 200 / 200 200 / 200 Balance -400 / -400 240 / 240 300 / 300 Intake: IV Fluids 200 / 200 500 / 500 0.9 % Sodium Chloride 1,000 ML 500 / 500 @ 80 mls/hr IVC .[id number] [facility] Rx #:[id number] Zosyn 3.375 GM In 0.9 % Sodium 200 / 200 Chloride (Mini-Bag +) 100 ML @ 25 mls/hr IVPB Q8H [facility] Rx#: [id number] Oral 240 / 240 Output: Urine 400 / 400 200 / 200 200 / 200 Wound Drainage 0 / 0 0 / 0 Left Buttock 0 / 0 0 / 0 Other: # Voids 1 Weight 107 kg Patient Weight 03/14/18 23:59 Weight 107 kg - General physical appearance well developed, well nourished, no distress, obese - Eyes normal ocular movement - ENT normal mucosa, atraumatic, normocephalic - Neck Neck exam: trachea midline - Respiratory normal expansion, normal respiratory effort, clear to auscultation - Cardiovascular Cardiovascular exam: Present: RRR - Abdomen Abdomen: Present: bowel sounds present, soft, non tender - Integumentary no rash - Neurologic CN 2-12 grossly intact - Musculoskeletal normal posture - Psychiatric oriented to time, oriented to person, oriented to place, speech is normal, memory intact - Labs 03/14/18 06:22 03/14/18 06:22 Diabetes panel 03/14/18 Range/Units 06:22 Sodium 137 (136-145) mEq/L Potassium 3.4 L (3.5-5.1) mEq/L Chloride 103 (98-107) mEq/L Carbon Dioxide 25 (23-29) mEq/L BUN 13 (6-20) mg/dL Creatinine 0.58 L (0.60-1.20) mg/dL Glucose 107 H (70-105) mg/dL Calcium 8.3 L (8.6-10.3) mg/dL Calcium panel 03/14/18 Range/Units 06:22 Calcium 8.3 L (8.6-10.3) mg/dL Pituitary panel 03/14/18 Range/Units 06:22 Sodium 137 (136-145) mEq/L Potassium 3.4 L (3.5-5.1) mEq/L Chloride 103 (98-107) mEq/L Carbon Dioxide 25 (23-29) mEq/L BUN 13 (6-20) mg/dL Creatinine 0.58 L (0.60-1.20) mg/dL Glucose 107 H (70-105) mg/dL Calcium 8.3 L (8.6-10.3) mg/dL Adrenal panel 03/14/18 Range/Units 06:22 Sodium 137 (136-145) mEq/L Potassium 3.4 L (3.5-5.1) mEq/L Chloride 103 (98-107) mEq/L Carbon Dioxide 25 (23-29) mEq/L BUN 13 (6-20) mg/dL Creatinine 0.58 L (0.60-1.20) mg/dL Glucose 107 H (70-105) mg/dL Calcium 8.3 L (8.6-10.3) mg/dL Consult Discharge Plan - Plan Referrals: NONE,PCP [Primary Care Provider] - <[place],Stevie J - Last Filed: 03/14/18 17:10> Date of Encounter: 03/14/18 - Assessment and Plan (1) Perforation of sigmoid colon due to diverticulitis Current Visit: Yes Status: Acute Objective Vital Signs - Last 8 Hours Temp Pulse Resp BP Pulse Ox 03/14/18 15:47 98.6 F 91 17 166/95 95 03/14/18 10:41 98.3 F 87 16 145/85 95 Intake and Output 03/14/18 03/14/18 03/14/18 07:59 15:59 23:59 Intake Total 440 / 440 500 / 500 Output Total 200 / 200 500 / 500 0 / 0 Balance 240 / 240 0 / 0 0 / 0 Intake: IV Fluids 200 / 200 500 / 500 0.9 % Sodium Chloride 1,000 ML 500 / 500 @ 80 mls/hr IVC .[id number] [facility] Rx #:[id number] Zosyn 3.375 GM In 0.9 % Sodium 200 / 200 Chloride (Mini-Bag +) 100 ML @ 25 mls/hr IVPB Q8H [facility] Rx#: [id number] Oral 240 / 240 Output: Urine 200 / 200 500 / 500 Wound Drainage 0 / 0 0 / 0 0 / 0 Left Buttock 0 / 0 0 / 0 0 / 0 Other: # Voids 1 Weight 107 kg Patient Weight 03/14/18 23:59 Weight 107 kg - Labs 03/14/18 06:22 03/14/18 06:22 Diabetes panel 03/14/18 Range/Units 06:22 Sodium 137 (136-145) mEq/L Potassium 3.4 L (3.5-5.1) mEq/L Chloride 103 (98-107) mEq/L Carbon Dioxide 25 (23-29) mEq/L BUN 13 (6-20) mg/dL Creatinine 0.58 L (0.60-1.20) mg/dL Glucose 107 H (70-105) mg/dL Calcium 8.3 L (8.6-10.3) mg/dL Calcium panel 03/14/18 Range/Units 06:22 Calcium 8.3 L (8.6-10.3) mg/dL Pituitary panel 03/14/18 Range/Units 06:22 Sodium 137 (136-145) mEq/L Potassium 3.4 L (3.5-5.1) mEq/L Chloride 103 (98-107) mEq/L Carbon Dioxide 25 (23-29) mEq/L BUN 13 (6-20) mg/dL Creatinine 0.58 L (0.60-1.20) mg/dL Glucose 107 H (70-105) mg/dL Calcium 8.3 L (8.6-10.3) mg/dL Adrenal panel 03/14/18 Range/Units 06:22 Sodium 137 (136-145) mEq/L Potassium 3.4 L (3.5-5.1) mEq/L Chloride 103 (98-107) mEq/L Carbon Dioxide 25 (23-29) mEq/L BUN 13 (6-20) mg/dL Creatinine 0.58 L (0.60-1.20) mg/dL Glucose 107 H (70-105) mg/dL Calcium 8.3 L (8.6-10.3) mg/dL - Attending Attestation patient seen and examined. i have reviewed all labs, imaging, and notes. I agree with the above assessment and plan.
--- NOTE | 2018-03-14 15:00 | Internal Med Progress Note ---
Hospitalist Progress Note - Encounter Date of Encounter: 03/14/18 Time of Encounter: 14:57 - Subjective Interval History: Patient evaluated earlier today. She is concerned about her blood pressure being high. No chest pain. No headaches. No blurred vision. No shortness of breath. - Exam Vitals: Temp Pulse Resp BP Pulse Ox 98.3 F 87 16 145/85 95 03/14/18 10:41 03/14/18 10:41 03/14/18 10:41 03/14/18 10:41 03/14/18 10:41 Exam: General: Patient is alert, no acute distress, oriented x 3 Respiratory: Good respiratory effort. Normal breath sounds. No wheezing or crackles. Cardiovascular: Regular rate and rhythm. s1 and s2 normal No clicks, rubs, gallops, or murmurs. right lower extremity pedal edema. Musculoskeletal: Spontaneously moving all extremities Skin: warm, dry, intact. Neuro: Alert oriented x 3 normal cranial nerves, no focal deficits - Assessment and Plan (1) Intra-abdominal abscess Current Visit: Yes Status: Acute Assessment and Plan: Status post percutaneous drainage. Clinically improving. Blood cultures positive for gram-negative chris. Most likely Escherichia coli. Wound culture positive for Escherichia coli which is pansensitive. Patient is currently on Zosyn. Continue IV antibiotics. Repeat CT scan of the abdomen tomorrow per surgery recommendations. (2) Perforation of sigmoid colon due to diverticulitis Current Visit: Yes Status: Acute Assessment and Plan: Management as above (3) Shortness of breath Current Visit: Yes Status: Resolved (4) Essential hypertension Current Visit: Yes Status: Chronic Assessment and Plan: Blood pressure has been elevated. Will switch Lopressor to IV 6 hrsscheduled dosing. Monitor blood pressure closely. - Time Spent with Patient Total time spent is greater than 50% in coordination of care (as documented) at patient's floor/unit and/or counseling patient: Internal Medicine: Result - Labs CBC & Chem 7: 03/14/18 06:22 03/14/18 06:22 Labs: Short CBC 03/14/18 Range/Units 06:22 WBC 14.5 H (4.3-11.1) K/mcL Hgb 10.7 L (11.5-15.4) g/dL Hct 33.0 L (35.3-44.9) % Plt Count 397 (140-400) K/mcL Neutrophils # 10.2 H (1.6-8.9) K/mcL BMP 03/14/18 06:22 Sodium 137 Potassium 3.4 L Chloride 103 Carbon Dioxide 25 BUN 13 Creatinine 0.58 L Glucose 107 H Calcium 8.3 L - ABG Interpretation ABG results: PT/INR, D-dimer PT 15.3 Seconds (9.4-12.1) H 03/10/18 05:31 Consult Discharge Plan - Plan Referrals: NONE,PCP [Primary Care Provider] -
[2018-03-14] MEDS: OXYCODONE Oral CONC 10 MG/0.5 ML ORAL.SYG SL PRN (21:23)
[2018-03-14] MEDS: Melatonin 3 MG TABLET PO PRN (23:10)
[2018-03-15] MEDS: *HR* Metoprolol 5 MG/5 ML VIAL IVP SCH ×3 (00:18→13:21)
[2018-03-15] MEDS: 0.9 % Sodium Chloride w KCl 20 MEQ/1,000 ML MLS IVC SCH ×2 (00:18→12:38)
[2018-03-15 04:34] LABS: Basophils # 0.1 K/mcL (0.0-0.2); Basophils % 0.4 %; Eosinophils # 0.1 K/mcL (0.0-0.6); Eosinophils % 0.9 %; Hematocrit 31.9 % (35.3-44.9); Hemoglobin 10.2 g/dL (11.5-15.4); Immature Granulocytes % 2.8 % (0-4); Lymphocytes # 2.2 K/mcL (0.6-4.6); Lymphocytes % 16.1 %; Mean Corpuscular Hemoglobin 27.5 pg (28.0-33.3); Mean Platelet Volume 9.6 fL (9.4-12.4); Monocytes # 1.3 K/mcL (0.0-1.3); Monocytes % 9.2 %; Neutrophils # 9.7 K/mcL (1.6-8.9); Platelet Count 429 K/mcL (140-400); Red Blood Count 3.71 M/mcL (3.82-4.97); Red Cell Distribution Width 13.8 % (11.5-14.5); Segmented Neutrophils % 70.6 %
[2018-03-15 04:51] LABS: BUN/Creatinine Ratio 17 (6-26); Blood Urea Nitrogen 9 mg/dL (6-20); Calcium 7.9 mg/dL (8.6-10.3); Carbon Dioxide 27 mEq/L (23-29); Chloride 105 mEq/L (98-107); Glucose 104 mg/dL (70-105); Osmolality,Calculated 287 (280-300); Potassium 3.5 mEq/L (3.5-5.1); Sodium 139 mEq/L (136-145); eGFR For Non-African Americans > 60 (> 60)
[2018-03-15 04:56] LABS: Platelet Estimate Normal (Normal); Reactive Lymphocytes Present (Not Present); Toxic Granulation Present (Not Present)
[2018-03-15] MEDS: Piperacillin/Tazobactam 3.375 GM in 0.9 % Sodium Chloride Mini Bag 100 ML IVPB SCH ×3 (05:51→20:15)
[2018-03-15] MEDS: *HR* Heparin 5,000 UNIT/ML VIAL SQ SCH ×2 (05:51→16:56)
--- NOTE | 2018-03-15 07:57 | General Surgery Progress Note ---
<Maurilio Todd - Last Filed: 03/15/18 08:50> Date of Encounter: 03/15/18 Time of Encounter: 07:56 - Assessment and Plan (1) Perforation of sigmoid colon due to diverticulitis Current Visit: Yes Status: Acute WBC count has lessened and Hemoglobin is remaining steady. Patient reports less abdominal pain. Vital signs are normal and afebrile. Plan: -Continue IV antibiotics -continue limited clears -continue drain management -continue care pain management -maintain activity as tolerated -maintain GI and DVT prophylaxis -abdomen/pelvis CT w/o IV contrast pending. Further recommendations pending. (2) Fluid overload Current Visit: Yes Status: Acute Patient reports bilateral pedal edema as expected per clincal course of fluid resuscitation. In no acute distress. Plan: okay to give Lasix as needed per primary team Qualifiers: Qualified Code(s): E87.71 - Transfusion associated circulatory overload Subjective Patient reports: pain is less, tolerating liquids well, voiding w/o difficulty, flatus, bowel movement, afebrile Narrative: abdominal pain remains less. Reports no bowel movements with visible blood. No nausea or vomiting. Objective Vital Signs - Last 8 Hours Temp Pulse Resp BP Pulse Ox 03/15/18 07:09 98.5 F 89 16 147/87 93 03/15/18 05:00 98.9 F 87 16 152/86 95 Intake and Output 03/14/18 03/14/18 03/15/18 15:59 23:59 07:59 Intake Total 500 / 500 200 / 200 1130 / 1130 Output Total 500 / 500 5 / 5 600 / 600 Balance 0 / 0 195 / 195 530 / 530 Intake: IV Fluids 500 / 500 200 / 200 1100 / 1100 0.9 % Sodium Chloride 1,000 ML 500 / 500 @ 80 mls/hr IVC .[id number] [facility] Rx #:[id number] KCl 20 mEq in 0.9% Sodium 1000 / 1000 Chloride 20 meq In 1,000 ml @ 80 mls/hr IVC .[id number] [facility] Rx#: [id number] Zosyn 3.375 GM In 0.9 % Sodium 100 / 100 100 / 100 Chloride (Mini-Bag +) 100 ML @ 25 mls/hr IVPB Q8H [facility] Rx#: [id number] Potassium Chloride 10 mEq/100mL 100 / 100 10 meq In 100 ml @ 100 mls/hr IVPB Q1H [facility] Rx#:[id number] Oral 30 / 30 Output: Urine 500 / 500 600 / 600 Wound Drainage 0 / 0 5 / 5 0 / 0 Left Buttock 0 / 0 5 / 5 0 / 0 Other: # Voids 1 1 - General physical appearance well developed, well nourished, no distress, severe distress - ENT normal mucosa, atraumatic, normocephalic - Neck Neck exam: trachea midline - Respiratory normal expansion, normal respiratory effort, clear to percussion, clear to auscultation - Cardiovascular Cardiovascular exam: Present: RRR - Abdomen Abdomen: Present: bowel sounds present, soft, non tender - Integumentary no rash (d) - Musculoskeletal normal gait, normal posture - Psychiatric oriented to time, oriented to person, oriented to place, speech is normal, memory intact - Labs 03/15/18 04:18 03/15/18 04:18 Diabetes panel 03/14/18 03/15/18 Range/Units 06:22 04:18 Sodium 137 139 (136-145) mEq/L Potassium 3.4 L 3.5 (3.5-5.1) mEq/L Chloride 103 105 (98-107) mEq/L Carbon Dioxide 25 27 (23-29) mEq/L BUN 13 9 (6-20) mg/dL Creatinine 0.58 L 0.52 L (0.60-1.20) mg/dL Glucose 107 H 104 (70-105) mg/dL Calcium 8.3 L 7.9 L (8.6-10.3) mg/dL Calcium panel 03/14/18 03/15/18 Range/Units 06:22 04:18 Calcium 8.3 L 7.9 L (8.6-10.3) mg/dL Pituitary panel 03/14/18 03/15/18 Range/Units 06:22 04:18 Sodium 137 139 (136-145) mEq/L Potassium 3.4 L 3.5 (3.5-5.1) mEq/L Chloride 103 105 (98-107) mEq/L Carbon Dioxide 25 27 (23-29) mEq/L BUN 13 9 (6-20) mg/dL Creatinine 0.58 L 0.52 L (0.60-1.20) mg/dL Glucose 107 H 104 (70-105) mg/dL Calcium 8.3 L 7.9 L (8.6-10.3) mg/dL Adrenal panel 03/14/18 03/15/18 Range/Units 06:22 04:18 Sodium 137 139 (136-145) mEq/L Potassium 3.4 L 3.5 (3.5-5.1) mEq/L Chloride 103 105 (98-107) mEq/L Carbon Dioxide 25 27 (23-29) mEq/L BUN 13 9 (6-20) mg/dL Creatinine 0.58 L 0.52 L (0.60-1.20) mg/dL Glucose 107 H 104 (70-105) mg/dL Calcium 8.3 L 7.9 L (8.6-10.3) mg/dL Consult Discharge Plan - Plan Referrals: NONE,PCP [Primary Care Provider] - <Johnson Cisneros - Last Filed: 03/15/18 13:20> Date of Encounter: 03/15/18 - Assessment and Plan (1) Colonic diverticular abscess Current Visit: Yes Status: Deleted Objective Vital Signs - Last 8 Hours Temp Pulse Resp BP Pulse Ox 03/15/18 10:44 98.4 F 91 17 157/93 93 03/15/18 07:09 98.5 F 89 16 147/87 93 Intake and Output 03/14/18 03/15/18 03/15/18 23:59 07:59 15:59 Intake Total 200 / 200 1130 / 1130 100 / 100 Output Total 5 / 5 600 / 600 200 / 200 Balance 195 / 195 530 / 530 -100 / -100 Intake: IV Fluids 200 / 200 1100 / 1100 100 / 100 KCl 20 mEq in 0.9% Sodium 1000 / 1000 Chloride 20 meq In 1,000 ml @ 80 mls/hr IVC .[id number] [facility] Rx#: [id number] Zosyn 3.375 GM In 0.9 % Sodium 100 / 100 100 / 100 100 / 100 Chloride (Mini-Bag +) 100 ML @ 25 mls/hr IVPB Q8H [facility] Rx#: [id number] Potassium Chloride 10 mEq/100mL 100 / 100 10 meq In 100 ml @ 100 mls/hr IVPB Q1H [facility] Rx#:[id number] Oral 30 / 30 Output: Urine 600 / 600 200 / 200 Wound Drainage 5 / 5 0 / 0 0 / 0 Left Buttock 5 / 5 0 / 0 0 / 0 Other: # Voids 1 1 - Labs 03/15/18 04:18 03/15/18 04:18 Diabetes panel 03/15/18 Range/Units 04:18 Sodium 139 (136-145) mEq/L Potassium 3.5 (3.5-5.1) mEq/L Chloride 105 (98-107) mEq/L Carbon Dioxide 27 (23-29) mEq/L BUN 9 (6-20) mg/dL Creatinine 0.52 L (0.60-1.20) mg/dL Glucose 104 (70-105) mg/dL Calcium 7.9 L (8.6-10.3) mg/dL Calcium panel 03/15/18 Range/Units 04:18 Calcium 7.9 L (8.6-10.3) mg/dL Pituitary panel 03/15/18 Range/Units 04:18 Sodium 139 (136-145) mEq/L Potassium 3.5 (3.5-5.1) mEq/L Chloride 105 (98-107) mEq/L Carbon Dioxide 27 (23-29) mEq/L BUN 9 (6-20) mg/dL Creatinine 0.52 L (0.60-1.20) mg/dL Glucose 104 (70-105) mg/dL Calcium 7.9 L (8.6-10.3) mg/dL Adrenal panel 03/15/18 Range/Units 04:18 Sodium 139 (136-145) mEq/L Potassium 3.5 (3.5-5.1) mEq/L Chloride 105 (98-107) mEq/L Carbon Dioxide 27 (23-29) mEq/L BUN 9 (6-20) mg/dL Creatinine 0.52 L (0.60-1.20) mg/dL Glucose 104 (70-105) mg/dL Calcium 7.9 L (8.6-10.3) mg/dL - Attending Attestation The history, physical exam, and medical decision making was performed by the medical student either while I was physically present and actively involved or I personally re-performed the exam and medical decision making. I have verified the accuracy of the medical student's documentation with regards to the history, physical exam findings, and medical decision making. The patient is seen and evaluated on morning rounds with the medical student. The medical's accurately documented evaluation and management. I personally examined the patient. Her abdominal examination is tremendously improved compared to last week. I personally reviewed the CAT scan films with the medical student. The patient does have some inflammatory ascites anterior to the diverticulitis segment. There are no areas of air in this fluid accumulation in this appears to be inflammatory ascites. The previous abscess has been adequately drained by CAT scan directed catheter. Her white blood cell count is trending downward but not normalized. Since she had gram- negative negative rods in her blood, I would continue IV antibiotics at this point. She is making good clinical progress. Johnson Cisneros MD FACS
[2018-03-15] MEDS: Pantoprazole 40 MG VIAL IVP SCH (09:51)
[2018-03-15] MEDS: Ondansetron 4 MG/2 ML VIAL IVP PRN ×3 (09:51→22:47)
--- NOTE | 2018-03-15 14:10 | Event Note ---
Date of Encounter: 03/15/18 Time of Encounter: 14:[address] Laird (IR) who notes the area referenced on CT looks more like ascites and is inclined to continue watchful waiting. Surgery is agreeable to this plan as patient has stated her discomfort is improved and she is feeling better today. WBC is downtrending and VSS. Will advance to FLD. Orders for cultures will be canceled
--- NOTE | 2018-03-15 14:16 | Internal Med Progress Note ---
Hospitalist Progress Note - Encounter Date of Encounter: 03/15/18 Time of Encounter: 09:48 - Subjective Interval History: Patient is doing well today. Denies any abdominal pain. No nausea or vomiting. No fever or chills reported overnight. No shortness of breath at this time. - Exam Vitals: Temp Pulse Resp BP Pulse Ox 98.4 F 91 17 157/93 93 03/15/18 10:44 03/15/18 10:44 03/15/18 10:44 03/15/18 10:44 03/15/18 10:44 Exam: General: Patient is alert, no acute distress, oriented x 3 Respiratory: Good respiratory effort. Normal breath sounds. No wheezing or crackles. Cardiovascular: Regular rate and rhythm. s1 and s2 normal No clicks, rubs, gallops, or murmurs. No pedal edema Abdomen: Abdomen is soft, nontender. Bowel sounds are present Musculoskeletal: Spontaneously moving all extremities - Assessment and Plan (1) Intra-abdominal abscess Current Visit: Yes Status: Acute Assessment and Plan: Continue current antibiotics. CT scan of the abdomen and pelvis done today. Shows small volume ascites without any internal focus of gas. Discussed with surgery. Will advance to full liquid diet. Monitor tolerance. CT does confirm consolidation at both bases. On IV antibiotics. (2) Pneumonia Current Visit: Yes Status: Acute Assessment and Plan: Right basal patchy consolidation. Atelectasis or pneumonia. Patient is on Zosyn and has clinically improved. WBC count is also improving. Blood cultures positive for gram-negative rods 1 out of 2 sets. Wound culture growing the same bacteria. An atopic culture pending. Repeat blood cultures have been negative. (3) Perforation of sigmoid colon due to diverticulitis Current Visit: Yes Status: Acute Assessment and Plan: Assessment as above (4) Shortness of breath Current Visit: Yes Status: Resolved (5) Essential hypertension Current Visit: Yes Status: Chronic Assessment and Plan: Blood pressure remains elevated. Will place patient on oral Lopressor from today. - Time Spent with Patient Total time spent is greater than 50% in coordination of care (as documented) at patient's floor/unit and/or counseling patient: Internal Medicine: Result - Labs CBC & Chem 7: 03/15/18 04:18 03/15/18 04:18 Labs: Short CBC 03/15/18 Range/Units 04:18 WBC 13.8 H (4.3-11.1) K/mcL Hgb 10.2 L (11.5-15.4) g/dL Hct 31.9 L (35.3-44.9) % Plt Count 429 H (140-400) K/mcL Neutrophils # 9.7 H (1.6-8.9) K/mcL BMP 03/15/18 04:18 Sodium 139 Potassium 3.5 Chloride 105 Carbon Dioxide 27 BUN 9 Creatinine 0.52 L Glucose 104 Calcium 7.9 L - ABG Interpretation ABG results: PT/INR, D-dimer PT 15.3 Seconds (9.4-12.1) H 03/10/18 05:31 - Impressions Impressions Abdomen/Pelvis CT 03/15/18 09:00 IMPRESSION: Interval placement of a drain in the pelvis left of the rectum with resolution of previously visualized air in fluid collection. Small volume ascites within the pelvis which appears loculated with largest component in the anterior left pelvis measuring 4.1 x 7.5 cm. No internal foci of gas. Ill-defined free fluid within the abdomen, new. Mild soft tissue edema. Patchy consolidation in the lung bases, new. Atelectasis versus infection. Free air noted within the upper abdomen has decreased slightly. D/ / Yadira Menendez MD / Yadira Menendez MD Interpreting Provider: Yadira Menendez MD Consult Discharge Plan - Plan Referrals: NONE,PCP [Primary Care Provider] - (2) Pneumonia Qualifiers: Pneumonia type: due to unspecified organism Laterality: bilateral Lung location: lower lobe of lung Qualified Code(s): J18.1 - Lobar pneumonia, unspecified organism
[2018-03-15] MEDS: OXYCODONE Oral CONC 10 MG/0.5 ML ORAL.SYG SL PRN (17:05)
[2018-03-15] MEDS: Melatonin 3 MG TABLET PO PRN (22:47)
[2018-03-15] MEDS: Albuterol 2.5 MG/3 ML NEBULIZER IH PRN (23:43)
[2018-03-16 05:00] LABS: Basophils # 0.1 K/mcL (0.0-0.2); Basophils % 0.3 %; Eosinophils # 0.1 K/mcL (0.0-0.6); Eosinophils % 0.7 %; Hematocrit 34.1 % (35.3-44.9); Hemoglobin 11.5 g/dL (11.5-15.4); Immature Granulocytes % 5.5 % (0-4); Lymphocytes % 12.1 %; Mean Corpuscular HGB Conc 33.7 g/dL (31.6-35.5); Mean Corpuscular Volume 86.1 fL (83.0-100.0); Mean Platelet Volume 10.7 fL (9.4-12.4); Monocytes # 1.3 K/mcL (0.0-1.3); Monocytes % 7.8 %; Neutrophils # 11.9 K/mcL (1.6-8.9); Nucleated Red Blood Cells 0.1 /100 WBC (0); Platelet Count 405 K/mcL (140-400); Red Blood Count 3.96 M/mcL (3.82-4.97); Segmented Neutrophils % 73.6 %
[2018-03-16 05:22] LABS: BUN/Creatinine Ratio 15 (6-26); Blood Urea Nitrogen 8 mg/dL (6-20); Calcium 8.2 mg/dL (8.6-10.3); Carbon Dioxide 24 mEq/L (23-29); Chloride 104 mEq/L (98-107); Glucose 127 mg/dL (70-105); Osmolality,Calculated 284 (280-300); Potassium 3.9 mEq/L (3.5-5.1); Sodium 137 mEq/L (136-145); eGFR For Non-African Americans > 60 (> 60)
[2018-03-16 05:26] LABS: Platelet Clumps Few (Not Present); Platelet Estimate Normal (Normal)
[2018-03-16] MEDS: OXYCODONE Oral CONC 10 MG/0.5 ML ORAL.SYG SL PRN ×2 (05:38→18:55)
[2018-03-16] MEDS: *HR* Heparin 5,000 UNIT/ML VIAL SQ SCH ×2 (05:39→17:23)
[2018-03-16] MEDS: Piperacillin/Tazobactam 3.375 GM in 0.9 % Sodium Chloride Mini Bag 100 ML IVPB SCH ×3 (05:42→20:04)
[2018-03-16] MEDS: Ondansetron 4 MG/2 ML VIAL IVP PRN ×2 (06:00→14:22)
--- NOTE | 2018-03-16 08:44 | General Surgery Progress Note ---
<July Maya - Last Filed: 03/16/18 11:15> Date of Encounter: 03/16/18 Time of Encounter: 08:44 - Assessment and Plan (1) Perforation of sigmoid colon due to diverticulitis Current Visit: Yes Status: Acute WBC 16 from 13.5 with elevated temperature overnight and sparce output from wound drain. - IR consulted and Dr Villegas advises that that pelvic fluid last seen on CT doesn't warrant intervention as unlikely to be abscess but may re-image was clinical course suggests - continue IV zosyn - start full liquid diet - removed pigtail drain today - continue GI and DVT prophylaxis - activity as tolerated - no surgical intervention at this time (2) DVT prophylaxis Current Visit: Yes Status: Acute Heparin SQ Subjective Patient reports: no new complaints (Decribes cramping pain with voiding or BM. Denies feverish feeling or chills despite elevated temp of 99.7F overnight), pain is less, bowel movement, shortness of breath, fever Objective Vital Signs - Last 8 Hours Temp Pulse Resp BP Pulse Ox 03/16/18 07:47 98.9 F 87 18 146/83 94 03/16/18 05:20 99.3 F 91 17 167/92 92 Intake and Output 03/15/18 03/16/18 03/16/18 23:59 07:59 15:59 Intake Total 100 / 100 100 / 100 2100 / 2100 Balance 100 / 100 100 / 100 2100 / 2100 Intake: IV Fluids 100 / 100 100 / 100 2100 / 2100 Zosyn 3.375 GM In 0.9 % Sodium 100 / 100 100 / 100 Chloride (Mini-Bag +) 100 ML @ 25 mls/hr IVPB Q8H [facility] Rx#: [id number] Other: Weight 109.605 kg Patient Weight 03/16/18 23:59 Weight 109.605 kg - General physical appearance well developed, no distress, obese - ENT normal pinna, normal nares, normal mucosa, no hearing loss - Respiratory normal expansion, normal respiratory effort, clear to auscultation - Cardiovascular Cardiovascular exam: Present: RRR. Absent: murmurs, rubs - Abdomen Abdomen: Present: bowel sounds present, soft, non tender, distended. Absent: guarding, rebound - Integumentary no rash, no growths, no abnormal pigmentation - Neurologic normal coordination, normal sensation - Musculoskeletal normal gait, normal posture - Psychiatric oriented to time, oriented to person, oriented to place - Additional Exam trace pedal edema improved from yesterday - Labs 03/16/18 04:29 03/16/18 04:29 Diabetes panel 03/16/18 Range/Units 04:29 Sodium 137 (136-145) mEq/L Potassium 3.9 (3.5-5.1) mEq/L Chloride 104 (98-107) mEq/L Carbon Dioxide 24 (23-29) mEq/L BUN 8 (6-20) mg/dL Creatinine 0.52 L (0.60-1.20) mg/dL Glucose 127 H (70-105) mg/dL Calcium 8.2 L (8.6-10.3) mg/dL Calcium panel 03/16/18 Range/Units 04:29 Calcium 8.2 L (8.6-10.3) mg/dL Pituitary panel 03/16/18 Range/Units 04:29 Sodium 137 (136-145) mEq/L Potassium 3.9 (3.5-5.1) mEq/L Chloride 104 (98-107) mEq/L Carbon Dioxide 24 (23-29) mEq/L BUN 8 (6-20) mg/dL Creatinine 0.52 L (0.60-1.20) mg/dL Glucose 127 H (70-105) mg/dL Calcium 8.2 L (8.6-10.3) mg/dL Adrenal panel 03/16/18 Range/Units 04:29 Sodium 137 (136-145) mEq/L Potassium 3.9 (3.5-5.1) mEq/L Chloride 104 (98-107) mEq/L Carbon Dioxide 24 (23-29) mEq/L BUN 8 (6-20) mg/dL Creatinine 0.52 L (0.60-1.20) mg/dL Glucose 127 H (70-105) mg/dL Calcium 8.2 L (8.6-10.3) mg/dL Consult Discharge Plan - Plan Referrals: NONE,PCP [Primary Care Provider] - <Johnson Cisneros - Last Filed: 03/17/18 07:51> Date of Encounter: 03/16/18 - Assessment and Plan (1) Colonic diverticular abscess Current Visit: Yes Status: Deleted Objective Vital Signs - Last 8 Hours Temp Pulse Resp BP Pulse Ox 03/17/18 07:01 99.0 F 92 18 159/88 93 03/17/18 04:55 99.4 F 88 17 171/84 93 Intake and Output 03/16/18 03/16/18 03/17/18 15:59 23:59 07:59 Intake Total 2360 / 2360 580 / 580 100 / 100 Output Total 0 / 0 Balance 2360 / 2360 580 / 580 100 / 100 Intake: IV Fluids 2300 / 2300 100 / 100 100 / 100 Diflucan Premix 200 MG/100 ML 100 / 100 200 mg In 100 ml @ 100 mls/hr IVPB ONCE ONE Rx#:[id number] Zosyn 3.375 GM In 0.9 % Sodium 100 / 100 100 / 100 100 / 100 Chloride (Mini-Bag +) 100 ML @ 25 mls/hr IVPB Q8H [facility] Rx#: [id number] Oral 60 / 60 480 / 480 Output: Urine 0 / 0 Other: Meal Dinner Percent of Meal Consumed 100% Weight 108.8 kg - Labs 03/17/18 04:28 03/17/18 04:28 Diabetes panel 03/17/18 Range/Units 04:28 Sodium 137 (136-145) mEq/L Potassium 3.6 (3.5-5.1) mEq/L Chloride 102 (98-107) mEq/L Carbon Dioxide 28 (23-29) mEq/L BUN 6 (6-20) mg/dL Creatinine 0.60 (0.60-1.20) mg/dL Glucose 104 (70-105) mg/dL Calcium 8.3 L (8.6-10.3) mg/dL Calcium panel 03/17/18 Range/Units 04:28 Calcium 8.3 L (8.6-10.3) mg/dL Pituitary panel 03/17/18 Range/Units 04:28 Sodium 137 (136-145) mEq/L Potassium 3.6 (3.5-5.1) mEq/L Chloride 102 (98-107) mEq/L Carbon Dioxide 28 (23-29) mEq/L BUN 6 (6-20) mg/dL Creatinine 0.60 (0.60-1.20) mg/dL Glucose 104 (70-105) mg/dL Calcium 8.3 L (8.6-10.3) mg/dL Adrenal panel 03/17/18 Range/Units 04:28 Sodium 137 (136-145) mEq/L Potassium 3.6 (3.5-5.1) mEq/L Chloride 102 (98-107) mEq/L Carbon Dioxide 28 (23-29) mEq/L BUN 6 (6-20) mg/dL Creatinine 0.60 (0.60-1.20) mg/dL Glucose 104 (70-105) mg/dL Calcium 8.3 L (8.6-10.3) mg/dL - Attending Attestation The history, physical exam, and medical decision making was performed by the medical student either while I was physically present and actively involved or I personally re-performed the exam and medical decision making. I have verified the accuracy of the medical student's documentation with regards to the history, physical exam findings, and medical decision making. The patient is seen and evaluated with the resident and medical student high on morning rounds. CAT scan images are reviewed. I am concerned that there is a new area of inflammatory fluid just above the sigmoid colon and her white blood cell count has slightly increased. We will reevaluate these images with interventional radiology and decide whether or not to drain this area. The previous abscess responded well to CAT scan drain in the CAT scan drain can be removed. Continue IV antibiotics. Continue clear liquids. Johnson Cisneros MD FACS
[2018-03-16] MEDS: Pantoprazole 40 MG VIAL IVP SCH (09:26)
[2018-03-16] MEDS ORDERED: Fluconazole 200 MG/100 ML 200 MG/100 ML BAG IVPB ONE (10:48)
--- NOTE | 2018-03-16 11:09 | Event Note ---
Date of Encounter: 03/16/18 Time of Encounter: 11:06 Pt with increased WBC and low grade fever. Reported SOB and LE edema last night as well as a "catch type pain in the right side when I breathe." . Will complete CXR PA/LAT; consideration for IV lasix pending. Posterior pigtail removed. No indication for repeat CT at this time. Reviewed with IR for a second time, fluid in pelvis is likely ascites fluid and not abscess, repeat CT if concern for abscess. Reviewed plan above with patient and SO as well as need for IS use. Will continue to monitor. May resume FLD. See progress note for further information.
--- NOTE | 2018-03-16 12:23 | Internal Med Progress Note ---
Hospitalist Progress Note - Encounter Date of Encounter: 03/16/18 Time of Encounter: 09:40 - Subjective Interval History: Patient has no complaints this morning, had the pigtail catheter from her abdomen removed today. Denies any shortness of breath, chest pain, hemoptysis, or productive cough. - Exam Vitals: Temp Pulse Resp BP Pulse Ox 98.1 F 83 19 134/86 93 03/16/18 12:03 03/16/18 12:03 03/16/18 12:03 03/16/18 12:03 03/16/18 12:03 Exam: General: Patient is alert, no acute distress, oriented x 3 Respiratory: Good respiratory effort. Normal breath sounds. No wheezing, rhonchi, or crackles. Cardiovascular: Regular rate and rhythm. s1 and s2 normal Abdomen: Abdomen is soft, nontender. Bowel sounds are present Musculoskeletal: Spontaneously moving all extremities - Assessment and Plan (1) Intra-abdominal abscess Current Visit: Yes Status: Acute Assessment and Plan: Continue current antibiotics. CT scan of the abdomen and pelvis done yesterday -> findings does not appear to represent an abscess and no intervention is warranted at this point. Patient however has persistent leukocytosis with slightly increasing immature granulocytes ?need for fungal coverage mx per surgery will closely monitor (2) Pneumonia Current Visit: Yes Status: Acute Assessment and Plan: patchy consolidation at the lungbases. Atelectasis or pneumonia. Patient is on Zosyn and does not have any significant pulmonary symptoms. Tmax 99.3 at 520am Repeat x-ray done today was unremarkable Leukocytosis is persistent with immature granulocytes as above. Nevertheless, patient has improved significantly without much pulmonary symptoms and it is doubtful that her leukocytosis is due to pneumonia May consider adding Azithromycin for atypical coverage if her clinical course changes monitor for fever and WBC incentive enrique (3) Perforation of sigmoid colon due to diverticulitis Current Visit: Yes Status: Acute Assessment and Plan: mx as above (4) Essential hypertension Current Visit: Yes Status: Chronic Assessment and Plan: Will switch lopressor to Coreg for better blood pressure control DVT Prophylaxis: Subcutaneous heparin - Time Spent with Patient Total time spent is greater than 50% in coordination of care (as documented) at patient's floor/unit and/or counseling patient: Plan of Care Discussed with: patient Internal Medicine: Result - Labs CBC & Chem 7: 03/16/18 04:29 03/16/18 04:29 Labs: Short CBC 03/16/18 Range/Units 04:29 WBC 16.1 H (4.3-11.1) K/mcL Hgb 11.5 (11.5-15.4) g/dL Hct 34.1 L (35.3-44.9) % Plt Count 405 H (140-400) K/mcL Neutrophils # 11.9 H (1.6-8.9) K/mcL BMP 03/16/18 04:29 Sodium 137 Potassium 3.9 Chloride 104 Carbon Dioxide 24 BUN 8 Creatinine 0.52 L Glucose 127 H Calcium 8.2 L - ABG Interpretation ABG results: PT/INR, D-dimer PT 15.3 Seconds (9.4-12.1) H 03/10/18 05:31 - Impressions Impressions Chest X-Ray 03/16/18 10:49 IMPRESSION: Stable chest with no acute cardiopulmonary process. D/ / Dylon Luke MD / Dylon Luke MD Interpreting Provider: Dylon Luke MD Consult Discharge Plan - Plan Referrals: NONE,PCP [Primary Care Provider] - (2) Pneumonia Qualifiers: Pneumonia type: due to unspecified organism Laterality: bilateral Lung location: lower lobe of lung Qualified Code(s): J18.1 - Lobar pneumonia, unspecified organism
[2018-03-17] MEDS: *HR* Heparin 5,000 UNIT/ML VIAL SQ SCH ×2 (04:59→16:52)
[2018-03-17] MEDS: Piperacillin/Tazobactam 3.375 GM in 0.9 % Sodium Chloride Mini Bag 100 ML IVPB SCH ×3 (04:59→19:27)
[2018-03-17 05:02] LABS: Basophils # 0.1 K/mcL (0.0-0.2); Basophils % 0.3 %; Eosinophils # 0.2 K/mcL (0.0-0.6); Eosinophils % 1.2 %; Hematocrit 33.6 % (35.3-44.9); Hemoglobin 10.6 g/dL (11.5-15.4); Immature Granulocytes % 4.7 % (0-4); Lymphocytes % 13.4 %; Mean Corpuscular HGB Conc 31.5 g/dL (31.6-35.5); Mean Corpuscular Hemoglobin 27.6 pg (28.0-33.3); Mean Corpuscular Volume 87.5 fL (83.0-100.0); Mean Platelet Volume 9.8 fL (9.4-12.4); Monocytes # 1.1 K/mcL (0.0-1.3); Monocytes % 7.7 %; Neutrophils # 10.6 K/mcL (1.6-8.9); Platelet Count 545 K/mcL (140-400); Red Blood Count 3.84 M/mcL (3.82-4.97); Red Cell Distribution Width 14.1 % (11.5-14.5); Segmented Neutrophils % 72.7 %
[2018-03-17 05:22] LABS: BUN/Creatinine Ratio 10 (6-26); Blood Urea Nitrogen 6 mg/dL (6-20); Calcium 8.3 mg/dL (8.6-10.3); Carbon Dioxide 28 mEq/L (23-29); Chloride 102 mEq/L (98-107); Glucose 104 mg/dL (70-105); Osmolality,Calculated 282 (280-300); Potassium 3.6 mEq/L (3.5-5.1); Sodium 137 mEq/L (136-145); eGFR For Non-African Americans > 60 (> 60)
[2018-03-17] MEDS ORDERED: Fluconazole 100 MG/50 ML 100 MG/50 ML BAG IVPB SCH (09:00)
--- NOTE | 2018-03-17 10:06 | General Surgery Progress Note ---
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 Cisneros No indication for acute surgical intervention at this time Repeat am labs- CBC (2) DVT prophylaxis Current Visit: Yes Status: Acute Heparin 5,000 units SQ twice daily for DVT prophylaxis Ambulate hallways TID with assistance Subjective Patient reports: no new complaints, feels better, tolerating liquids well (full liquids), flatus, bowel movement (last 03/16/18), nausea (occasional but states that it is related to her diet (tired of liquids)), afebrile Objective Vital Signs - Last 8 Hours Temp Pulse Resp BP Pulse Ox 03/17/18 07:01 99.0 F 92 18 159/88 93 03/17/18 04:55 99.4 F 88 17 171/84 93 Intake and Output 03/16/18 03/17/18 03/17/18 23:59 07:59 15:59 Intake Total 580 / 580 100 / 100 240 / 240 Balance 580 / 580 100 / 100 240 / 240 Intake: IV Fluids 100 / 100 100 / 100 Zosyn 3.375 GM In 0.9 % Sodium 100 / 100 100 / 100 Chloride (Mini-Bag +) 100 ML @ 25 mls/hr IVPB Q8H [facility] Rx#: [id number] Oral 480 / 480 240 / 240 Other: Meal Dinner Breakfast Percent of Meal Consumed 100% 100% Weight 108.8 kg - General physical appearance well developed, well nourished, no distress, no pain - Eyes normal ocular movement - ENT normal mucosa, atraumatic, normocephalic - Neck Neck exam: trachea midline - Respiratory normal expansion, normal respiratory effort, clear to auscultation - Cardiovascular Cardiovascular exam: Present: RRR - Abdomen Abdomen: Present: bowel sounds present, soft, non tender - Neurologic CN 2-12 grossly intact - Musculoskeletal normal gait, normal posture - Psychiatric oriented to time, oriented to person, oriented to place, speech is normal, memory intact - Labs 03/17/18 04:28 03/17/18 04:28 Diabetes panel 03/17/18 Range/Units 04:28 Sodium 137 (136-145) mEq/L Potassium 3.6 (3.5-5.1) mEq/L Chloride 102 (98-107) mEq/L Carbon Dioxide 28 (23-29) mEq/L BUN 6 (6-20) mg/dL Creatinine 0.60 (0.60-1.20) mg/dL Glucose 104 (70-105) mg/dL Calcium 8.3 L (8.6-10.3) mg/dL Calcium panel 03/17/18 Range/Units 04:28 Calcium 8.3 L (8.6-10.3) mg/dL Pituitary panel 03/17/18 Range/Units 04:28 Sodium 137 (136-145) mEq/L Potassium 3.6 (3.5-5.1) mEq/L Chloride 102 (98-107) mEq/L Carbon Dioxide 28 (23-29) mEq/L BUN 6 (6-20) mg/dL Creatinine 0.60 (0.60-1.20) mg/dL Glucose 104 (70-105) mg/dL Calcium 8.3 L (8.6-10.3) mg/dL Adrenal panel 03/17/18 Range/Units 04:28 Sodium 137 (136-145) mEq/L Potassium 3.6 (3.5-5.1) mEq/L Chloride 102 (98-107) mEq/L Carbon Dioxide 28 (23-29) mEq/L BUN 6 (6-20) mg/dL Creatinine 0.60 (0.60-1.20) mg/dL Glucose 104 (70-105) mg/dL Calcium 8.3 L (8.6-10.3) mg/dL Consult Discharge Plan - Plan Additional Instructions: Low fiber diet for 6-8 weeks Referrals: NONE,PCP [Primary Care Provider] - Johnson Cisneros MD [Partnered Physician] - 03/30/18 9:20 am (Hospital follow-up) Prescriptions: Amoxicillin/Clavulanate [Augmentin] 875 mg PO BIDWM #20 tablet Fluconazole [Diflucan] 100 mg PO DAILY #10 tablet - Attending Attestation For this encounter, I have reviewed the CRUSHER FOREMAN or PA documentation, treatment plan, and medical decision making; and I have had face to face time with this patient. <Johnson Cisneros - Last Filed: 03/17/18 15:41> Date of Encounter: 03/17/18 - Assessment and Plan (1) Colonic diverticular abscess Current Visit: Yes Status: Deleted Objective Vital Signs - Last 8 Hours Temp Pulse Resp BP Pulse Ox 03/17/18 11:34 98.8 F 74 18 138/85 94 03/17/18 08:50 93 Intake and Output 03/16/18 03/17/18 03/17/18 23:59 07:59 15:59 Intake Total 580 / 580 100 / 100 340 / 340 Balance 580 / 580 100 / 100 340 / 340 Intake: IV Fluids 100 / 100 100 / 100 100 / 100 Zosyn 3.375 GM In 0.9 % Sodium 100 / 100 100 / 100 100 / 100 Chloride (Mini-Bag +) 100 ML @ 25 mls/hr IVPB Q8H [facility] Rx#: [id number] Oral 480 / 480 240 / 240 Other: Meal Dinner Breakfast Percent of Meal Consumed 100% 100% Weight 108.8 kg - Labs 03/17/18 04:28 03/17/18 04:28 Diabetes panel 03/17/18 Range/Units 04:28 Sodium 137 (136-145) mEq/L Potassium 3.6 (3.5-5.1) mEq/L Chloride 102 (98-107) mEq/L Carbon Dioxide 28 (23-29) mEq/L BUN 6 (6-20) mg/dL Creatinine 0.60 (0.60-1.20) mg/dL Glucose 104 (70-105) mg/dL Calcium 8.3 L (8.6-10.3) mg/dL Calcium panel 03/17/18 Range/Units 04:28 Calcium 8.3 L (8.6-10.3) mg/dL Pituitary panel 03/17/18 Range/Units 04:28 Sodium 137 (136-145) mEq/L Potassium 3.6 (3.5-5.1) mEq/L Chloride 102 (98-107) mEq/L Carbon Dioxide 28 (23-29) mEq/L BUN 6 (6-20) mg/dL Creatinine 0.60 (0.60-1.20) mg/dL Glucose 104 (70-105) mg/dL Calcium 8.3 L (8.6-10.3) mg/dL Adrenal panel 03/17/18 Range/Units 04:28 Sodium 137 (136-145) mEq/L Potassium 3.6 (3.5-5.1) mEq/L Chloride 102 (98-107) mEq/L Carbon Dioxide 28 (23-29) mEq/L BUN 6 (6-20) mg/dL Creatinine 0.60 (0.60-1.20) mg/dL Glucose 104 (70-105) mg/dL Calcium 8.3 L (8.6-10.3) mg/dL - Attending Attestation I have personally performed a face to face evaluation on this patient. I have reviewed and agree with the care plan. History and Exam by me shows: The patient is seen and evaluated on morning rounds with the medical student. The patient's care is discussed with the clinical nurse practitioner. We will maintain her on full liquid diet. Continue IV antibiotics. Her white cell count is coming down. I believe that the fluid accumulation is inflammatory ascites rather. Clinically much improved with a negative abdominal examination. Johnson Cisneros MD FACS
--- NOTE | 2018-03-17 11:38 | Internal Med Progress Note ---
Hospitalist Progress Note - Encounter Date of Encounter: 03/17/18 Time of Encounter: 09:55 - Subjective Interval History: Patient continues to do well, no new complaints. Tolerating full liquid well. Denies any fever/chills, nausea/vomiting, shortness of breath, chest pain, hemoptysis, productive cough, or worsening abdominal pain. - Exam Vitals: Temp Pulse Resp BP Pulse Ox 98.8 F 74 18 138/85 94 03/17/18 11:34 03/17/18 11:34 03/17/18 11:34 03/17/18 11:34 03/17/18 11:34 Exam: General: Patient is alert, no acute distress, oriented x 3 Respiratory: Good respiratory effort. Normal breath sounds. No wheezing, rhonchi, or crackles. Cardiovascular: Regular rate and rhythm. s1 and s2 normal Abdomen: Abdomen is soft, nontender. Bowel sounds are present Musculoskeletal: Spontaneously moving all extremities - Assessment and Plan (1) Intra-abdominal abscess Current Visit: Yes Status: Acute Assessment and Plan: Continue current antibiotics. CT scan of the abdomen and pelvis done on 03/15-> findings does not appear to represent an abscess and no intervention is warranted at this point. Patient however has persistent leukocytosis with slightly increasing immature granulocytes -> diflucan added by surgery mx per surgery will closely monitor (2) Pneumonia Current Visit: Yes Status: Acute Assessment and Plan: patchy consolidation at the lungbases. Atelectasis or pneumonia. Patient is on Zosyn and does not have any significant pulmonary symptoms. Tmax 99.3 at 520am Repeat x-ray done yesterday was unremarkable Persistent leukocytosis is unlikely to be due to PNA which should have been adequately treated with current course of zosyn so far. does not appear to need Azithromycin for atypical coverage incentive enrique (3) Perforation of sigmoid colon due to diverticulitis Current Visit: Yes Status: Acute Assessment and Plan: mx as above (4) Essential hypertension Current Visit: Yes Status: Chronic Assessment and Plan: uptitrating coreg Patient has not been on antihypertensives at home, will need a prescription for it at the time of discharge DVT Prophylaxis: Subcutaneous heparin - Time Spent with Patient Total time spent is greater than 50% in coordination of care (as documented) at patient's floor/unit and/or counseling patient: Plan of Care Discussed with: patient Internal Medicine: Result - Labs CBC & Chem 7: 03/17/18 04:28 03/17/18 04:28 Labs: Short CBC 03/17/18 Range/Units 04:28 WBC 14.6 H (4.3-11.1) K/mcL Hgb 10.6 L (11.5-15.4) g/dL Hct 33.6 L (35.3-44.9) % Plt Count 545 H (140-400) K/mcL Neutrophils # 10.6 H (1.6-8.9) K/mcL BMP 03/17/18 04:28 Sodium 137 Potassium 3.6 Chloride 102 Carbon Dioxide 28 BUN 6 Creatinine 0.60 Glucose 104 Calcium 8.3 L - ABG Interpretation ABG results: PT/INR, D-dimer PT 15.3 Seconds (9.4-12.1) H 03/10/18 05:31 - Impressions Impressions Chest X-Ray 03/16/18 10:49 IMPRESSION: Stable chest with no acute cardiopulmonary process. D/ / Dylon Luke MD / Dylon Luke MD Interpreting Provider: Dylon Luke MD Consult Discharge Plan - Plan Additional Instructions: Low fiber diet for 6-8 weeks Referrals: Johnson Cisneros MD [Partnered Physician] - 03/30/18 9:20 am (Hospital follow-up) NONE,PCP [Primary Care Provider] - Prescriptions: Amoxicillin/Clavulanate [Augmentin] 875 mg PO BIDWM #20 tablet Fluconazole [Diflucan] 100 mg PO DAILY #10 tablet (2) Pneumonia Qualifiers: Pneumonia type: due to unspecified organism Laterality: bilateral Lung location: lower lobe of lung Qualified Code(s): J18.1 - Lobar pneumonia, unspecified organism
[2018-03-17] MEDS: Ondansetron 4 MG/2 ML VIAL IVP PRN (16:06)
[2018-03-17] MEDS: OXYCODONE Oral CONC 10 MG/0.5 ML ORAL.SYG SL PRN (17:36)
[2018-03-17] MEDS: Melatonin 3 MG TABLET PO PRN (23:13)
[2018-03-18] MEDS: Piperacillin/Tazobactam 3.375 GM in 0.9 % Sodium Chloride Mini Bag 100 ML IVPB SCH (03:56)
[2018-03-18] MEDS: *HR* Heparin 5,000 UNIT/ML VIAL SQ SCH (05:11)
[2018-03-18 05:15] LABS: Eosinophils % 1.5 %; Hematocrit 32.1 % (35.3-44.9); Hemoglobin 10.1 g/dL (11.5-15.4); Immature Granulocytes % 2.5 % (0-4); Mean Corpuscular HGB Conc 31.5 g/dL (31.6-35.5); Mean Corpuscular Hemoglobin 27.4 pg (28.0-33.3); Mean Corpuscular Volume 87.2 fL (83.0-100.0); Mean Platelet Volume 9.2 fL (9.4-12.4); Platelet Count 513 K/mcL (140-400); Red Blood Count 3.68 M/mcL (3.82-4.97); Red Cell Distribution Width 14.1 % (11.5-14.5); Segmented Neutrophils % 72.6 %
[2018-03-18 05:16] LABS: Basophils % 0.4 %; Eosinophils # 0.2 K/mcL (0.0-0.6); Lymphocytes # 1.7 K/mcL (0.6-4.6); Monocytes # 0.9 K/mcL (0.0-1.3); Neutrophils # 8.3 K/mcL (1.6-8.9)
[2018-03-18] MEDS ORDERED: Fluconazole 100 MG TABLET PO SCH (09:00)
[2018-03-18] MEDS ORDERED: metroNIDAZOLE 500 MG TABLET PO SCH (09:00)
--- NOTE | 2018-03-18 09:35 | Internal Med Progress Note ---
Hospitalist Progress Note - Encounter Date of Encounter: 03/18/18 Time of Encounter: 08:00 - Subjective Interval History: Patient continues to do well, no new complaints. Tolerating regular diet this morning well. Denies any fever/chills, nausea/vomiting, shortness of breath, chest pain, hemoptysis, productive cough, or worsening abdominal pain. - Exam Vitals: Temp Pulse Resp BP Pulse Ox 98.5 F 79 18 159/70 95 03/18/18 06:55 03/18/18 06:55 03/18/18 06:55 03/18/18 06:55 03/18/18 07:36 Exam: General: Patient is alert, no acute distress, oriented x 3 Respiratory: Good respiratory effort. Normal breath sounds. No wheezing, rhonchi, or crackles. Cardiovascular: Regular rate and rhythm. s1 and s2 normal Abdomen: Abdomen is soft, nontender. Bowel sounds are present Musculoskeletal: Spontaneously moving all extremities - Assessment and Plan (1) Pneumonia Current Visit: Yes Status: Resolved Assessment and Plan: patchy consolidation at the lungbases. Atelectasis or pneumonia. Patient is on Zosyn and does not have any significant pulmonary symptoms. Tmax 99.3 at 520am Repeat x-ray done 03/16 was unremarkable Persistent leukocytosis is unlikely to be due to PNA which should have been adequately treated with current course of zosyn so far. does not appear to need Azithromycin for atypical coverage incentive enrique abx for the diagnosis above per surgery will sign off (2) Intra-abdominal abscess Current Visit: Yes Status: Acute Assessment and Plan: Continue current antibiotics. CT scan of the abdomen and pelvis done on 03/15-> findings does not appear to represent an abscess and no intervention is warranted at this point. Patient however has persistent leukocytosis with slightly increasing immature granulocytes -> diflucan added by surgery and WBC has since been improving mx per surgery will closely monitor (3) Perforation of sigmoid colon due to diverticulitis Current Visit: Yes Status: Acute Assessment and Plan: mx as above (4) Essential hypertension Current Visit: Yes Status: Chronic Assessment and Plan: continue coreg 6.25mg BID, prescription given DVT Prophylaxis: SQ heparin - Time Spent with Patient Total time spent is greater than 50% in coordination of care (as documented) at patient's floor/unit and/or counseling patient: Plan of Care Discussed with: patient Internal Medicine: Result - Labs CBC & Chem 7: 03/18/18 05:01 03/17/18 04:28 Labs: Short CBC 03/18/18 Range/Units 05:01 WBC 11.4 H (4.3-11.1) K/mcL Hgb 10.1 L (11.5-15.4) g/dL Hct 32.1 L (35.3-44.9) % Plt Count 513 H (140-400) K/mcL Neutrophils # 8.3 (1.6-8.9) K/mcL - ABG Interpretation ABG results: PT/INR, D-dimer PT 15.3 Seconds (9.4-12.1) H 03/10/18 05:31 Consult Discharge Plan - Plan Additional Instructions: Low fiber diet for 6-8 weeks Referrals: Johnson Cisneros MD [Partnered Physician] - 03/30/18 9:20 am (Hospital follow-up) NONE,PCP [Primary Care Provider] - Prescriptions: Amoxicillin/Clavulanate [Augmentin] 875 mg PO BIDWM #20 tablet Carvedilol [Coreg] 6.25 mg PO BIDWM #60 tablet Fluconazole [Diflucan] 100 mg PO DAILY #10 tablet (1) Pneumonia Qualifiers: Pneumonia type: due to unspecified organism Laterality: bilateral Lung location: lower lobe of lung Qualified Code(s): J18.1 - Lobar pneumonia, unspecified organism
[2018-03-18 10:47] VITALS: BP 155/90
--- NOTE | 2018-03-18 10:50 | Discharge Summary ---
<Phyllis Rosa - Last Filed: 03/18/18 11:05> Orders not resulted at time of discharge: Pending orders 03/13/18 11:04 Culture,Blood [BC] Routine 03/16/18 08:21 Culture,Anaerobic [RM] Routine Culture,Wound [RM] Routine Gram Stain [RM] Routine 03/16/18 08:23 Fungal Culture [MYC] Routine Date of Encounter: 03/18/18 Time of Encounter: 07:00 - Discharge Diagnosis (1) Perforation of sigmoid colon due to diverticulitis Priority: Primary Status: Acute General Surgery Exam Initial Vital Signs Temp Pulse Resp BP Pulse Ox 98.5 F 94 12 154/72 98 03/10/18 02:22 03/10/18 02:22 03/10/18 02:22 03/10/18 02:22 03/10/18 02:22 Vital Signs Temp Pulse Resp BP Pulse Ox 03/18/18 10:45 98.7 F 97 18 155/90 95 03/18/18 07:36 95 03/18/18 06:55 98.5 F 79 18 159/70 95 03/18/18 04:10 98.3 F 80 16 156/90 95 03/17/18 23:24 98.2 F 81 16 139/80 93 03/17/18 19:49 98.7 F 78 16 157/95 94 03/17/18 15:46 98.8 F 77 19 138/85 95 03/17/18 11:34 98.8 F 74 18 138/85 94 Intake and Output 03/17/18 03/18/18 03/18/18 23:59 07:59 15:59 Intake Total 610 / 610 Balance 610 / 610 Intake: IV Fluids 250 / 250 Diflucan 100 MG/50 ML 100 mg In 50 / 50 50 ml @ 50 mls/hr IVPB DAILY [facility]A Rx#:[id number] Zosyn 3.375 GM In 0.9 % Sodium 200 / 200 Chloride (Mini-Bag +) 100 ML @ 25 mls/hr IVPB Q8H PETRONA Rx#: [id number] Oral 360 / 360 Other: Meal Dinner Percent of Meal Consumed 45% # Voids 1 Weight 108.068 kg VITAL SIGNS: [facility]. [facility] GENERAL: In no apparent distress. HEENT: Normocephalic, atraumatic, oropharynx is pink and moist, there is no neck adenopathy or JVD noted. CHEST/RESPIRATORY: The thorax is free from signs of trauma. Lung sounds: clear to auscultation, normal respiratory effort CARDIAC: Regular rate and rhythm. Normal S1 and S2, without murmurs, gallops, or rubs. VASCULAR: No Edema. 2+ peripheral pulses. ABDOMEN: soft, non-tender, active bowel sounds MUSCULOSKELETAL: Good range of motion of all major joints. Extremities without clubbing, cyanosis or edema. NEUROLOGIC EXAM: Alert and oriented x 3. Speech normal. Follows commands. PSYCHIATRIC: Mood normal. SKIN: No rash or lesions. - Hospital Course Hospital course: Ms. Cisneros is a 52 year old female Roasnna's a 52-year-old female who was admitted on 03/10/2018 with acute diverticulitis with abscess. A drain was placed in the posterior region, she was supported with IV antibiotics and bowel rest. Her drain was removed on 03/16. She is tolerating a soft diet without nausea or vomiting, vital signs are stable, and she is afebrile. Her hospital course was complicated by pneumonia which was treated by the consult hospitalist. We will begin discharge planning to home with a follow-up in the office in approximately 4 to 6 weeks. She will be discharged on Augmentin and Flagyl as this will provide total coverage for the pneumonia and diverticulitis. - Time Spent with Patient Total time spent providing and/or coordinating discharge services: - Discharge Medications Prescriptions: Amoxicillin/Clavulanate [Augmentin] 875 mg PO BIDWM #20 tablet Carvedilol [Coreg] 6.25 mg PO BIDWM #60 tablet Fluconazole [Diflucan] 100 mg PO DAILY #10 tablet metroNIDAZOLE [Flagyl] 500 mg PO TID #30 tablet Home Medications: Amoxicillin/Clavulanate [Augmentin] 875 mg PO BIDWM #20 tablet 03/17/18 [Rx] Fluconazole [Diflucan] 100 mg PO DAILY #10 tablet 03/17/18 [Rx] Carvedilol [Coreg] 6.25 mg PO BIDWM #60 tablet 03/18/18 [Rx] metroNIDAZOLE [Flagyl] 500 mg PO TID #30 tablet 03/18/18 [Rx] Allergies/Adverse Reactions: 3 Allergy/AdvReac Type Severity Reaction Status Date / Time No Known Allergies Allergy Verified 03/10/18 08:00 Date of admission: 03/10/18 05:26 Primary care physician: PCP NONE Consults: 03/10/18 07:29 Consult to Interventional Radiology [CONS] Stat Consulting Provider: Radiology Interventional Cols Reason for Consult: diverticular abcess Time Notified: 06:00 Call Completed: Yes 03/11/18 09:07 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 [Consult to Nutrition] [CONS] Routine Comment: low fiber diet 6 weeks, then diverticulitis diet Consulting Provider: NUTRITION Reason for Dietary Consult: Diet Education Other:: currenty limited clears, will not advance for 24-48 hours 03/11/18 17:58 Consult to Hospitalist [CONS] Routine Consulting Provider: Hospitalist Billy Reason for Consult: sob Call Completed: No 03/15/18 13:59 Consult to Interventional Radiology [CONS] Stat Consulting Provider: Radiology Interventional Cols Reason for Consult: new locultaed fluid collection per CT 03/15/2018 Time Notified: 14:00 Call Completed: Yes Discharging clinician: Johnson Rosa) Anticipated date of discharge: 03/18/18 Labs on day of discharge: Labs from last 24 hours 03/18/18 05:01 WBC 11.4 H RBC 3.68 L Hgb 10.1 L Hct 32.1 L MCV 87.2 MCH 27.4 L MCHC 31.5 L RDW 14.1 Plt Count 513 H MPV 9.2 L Immature Gran % 2.5 Seg Neutrophils % 72.6 Lymphocytes % 15.0 Monocytes % 8.0 Eosinophils % 1.5 Basophils % 0.4 Neutrophils # 8.3 Lymphocytes # 1.7 Monocytes # 0.9 Eosinophils # 0.2 Basophils # 0.0 Preliminary micro results at discharge 03/10/18 05:31 Blood Culture - Preliminary Peripheral Venipuncture Gram Negative Manas 03/13/18 11:04 Blood Culture - Preliminary Peripheral Venipuncture Culture is incubating and being continuously monitored for growth. Final report to follow. 03/13/18 11:04 Blood Culture - Preliminary Peripheral Venipuncture Culture is incubating and being continuously monitored for growth. Final report to follow. - Impressions ITS Impressions Chest X-Ray 03/11/18 17:54 IMPRESSION: 1. Low lung volumes. 2. Elevation of the right hemidiaphragm with mild right basilar opacification. 3. There may be a right pleural effusion. D/ / Ventura Sams MD / Ventura Sams MD Interpreting Provider: Ventura Sams MD Chest CTA 03/11/18 19:51 IMPRESSION: Limited evaluation of the subsegmental pulmonary arterial branches. No central or segmental pulmonary embolism is detected. Ground-glass opacity within the lungs on the repeat examination, which is probably secondary to low lung volumes with microatelectasis. Correlate with any clinical or laboratory evidence of pulmonary edema. There elevation the right hemidiaphragm with adjacent airspace disease. This raise the possibility of hemidiaphragmatic paralysis. Consider further evaluation with a sniff test. D/ / Claudio Garza MD / Claudio Garza MD Interpreting Provider: Claudio Garza MD Abdomen/Pelvis CT 03/15/18 09:00 IMPRESSION: Interval placement of a drain in the pelvis left of the rectum with resolution of previously visualized air in fluid collection. Small volume ascites within the pelvis which appears loculated with largest component in the anterior left pelvis measuring 4.1 x 7.5 cm. No internal foci of gas. Ill-defined free fluid within the abdomen, new. Mild soft tissue edema. Patchy consolidation in the lung bases, new. Atelectasis versus infection. Free air noted within the upper abdomen has decreased slightly. D/ / Yadira Menendez MD / Yadira Menendez MD Interpreting Provider: Yadira Menendez MD Chest X-Ray 03/16/18 10:49 IMPRESSION: Stable chest with no acute cardiopulmonary process. D/ / Dylon Luke MD / Dylon Luke MD Interpreting Provider: Dylon Luke MD - Patient Status Disposition: Home, Self-Care Condition: Serious Functional capacity at discharge: independent ambulation Overall status at discharge: patient is progressing back to baseline - Discharge Instructions Instructions: Metronidazole (By mouth), Amoxicillin/Clavulanate Potassium (By mouth), Fluconazole (By mouth), Carvedilol (By mouth), Diverticulitis (DC), High Fiber Diet (DC), Low Fiber Diet (GEN), Diverticulitis Diet (DC), Diverticulosis Diet (GEN), Pneumonia (DC) Follow Up With: Johnson Cisneros MD [Partnered Physician] - 03/30/18 9:20 am (Hospital follow-up) NONE,PCP [Primary Care Provider] - Forms: ED Satisfaction Letter, Work/School Release Additional Instructions: High fiber diet for 6-8 weeks Take Cipro and Flagyl as directed. Do not drink alcohol while taking Flagyl ( metronidazole) doing so can cause violent abdominal pain and vomiting. - Diet and Activity Activity: increase activity as tolerated, return to work once cleared by your PCP/specialist Diet: other (see instructions) <Johnson Cisneros - Last Filed: 03/18/18 17:04> Date of Encounter: 03/18/18 - Discharge Diagnosis (1) Colonic diverticular abscess Status: Deleted General Surgery Exam Initial Vital Signs Temp Pulse Resp BP Pulse Ox 98.5 F 94 12 154/72 98 03/10/18 02:22 03/10/18 02:22 03/10/18 02:22 03/10/18 02:22 03/10/18 02:22 - Hospital Course Hospital course: Ms. 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 [Consult to Nutrition] [CONS] Routine Comment: low fiber diet 6 weeks, then diverticulitis diet Consulting Provider: NUTRITION Reason for Dietary Consult: Diet Education Other:: currenty limited clears, will not advance for 24-48 hours 03/11/18 17:58 Consult to Hospitalist [CONS] Routine Consulting Provider: Hospitalist Billy Reason for Consult: sob Call Completed: No 03/15/18 13:59 Consult to Interventional Radiology [CONS] Stat Consulting Provider: Radiology Interventional Cols Reason for Consult: new locultaed fluid collection per CT 03/15/2018 Time Notified: 14:00 Call Completed: Yes Labs on day of discharge: Labs from last 24 hours 03/18/18 05:01 WBC 11.4 H RBC 3.68 L Hgb 10.1 L Hct 32.1 L MCV 87.2 MCH 27.4 L MCHC 31.5 L RDW 14.1 Plt Count 513 H MPV 9.2 L Immature Gran % 2.5 Seg Neutrophils % 72.6 Lymphocytes % 15.0 Monocytes % 8.0 Eosinophils % 1.5 Basophils % 0.4 Neutrophils # 8.3 Lymphocytes # 1.7 Monocytes # 0.9 Eosinophils # 0.2 Basophils # 0.0 - Impressions ITS Impressions Chest X-Ray 03/11/18 17:54 IMPRESSION: 1. Low lung volumes. 2. Elevation of the right hemidiaphragm with mild right basilar opacification. 3. There may be a right pleural effusion. D/ / Ventura Sams MD / Ventura Sams MD Interpreting Provider: Ventura Sams MD Chest CTA 03/11/18 19:51 IMPRESSION: Limited evaluation of the subsegmental pulmonary arterial branches. No central or segmental pulmonary embolism is detected. Ground-glass opacity within the lungs on the repeat examination, which is probably secondary to low lung volumes with microatelectasis. Correlate with any clinical or laboratory evidence of pulmonary edema. There elevation the right hemidiaphragm with adjacent airspace disease. This raise the possibility of hemidiaphragmatic paralysis. Consider further evaluation with a sniff test. D/ / Claudio Garza MD / Claudio Garza MD Interpreting Provider: Claudio Garza MD Abdomen/Pelvis CT 03/15/18 09:00 IMPRESSION: Interval placement of a drain in the pelvis left of the rectum with resolution of previously visualized air in fluid collection. Small volume ascites within the pelvis which appears loculated with largest component in the anterior left pelvis measuring 4.1 x 7.5 cm. No internal foci of gas. Ill-defined free fluid within the abdomen, new. Mild soft tissue edema. Patchy consolidation in the lung bases, new. Atelectasis versus infection. Free air noted within the upper abdomen has decreased slightly. D/ / Yadira Menendez MD / Yadira Menendez MD Interpreting Provider: Yadira Menendez MD Chest X-Ray 03/16/18 10:49 IMPRESSION: Stable chest with no acute cardiopulmonary process. D/ / Dylon Luke MD / Dylon Luke MD Interpreting Provider: Dylon Luke MD - Attending Attestation I have personally performed a face to face evaluation on this patient. I have reviewed and agree with the care plan. History and Exam by me shows: The patient is seen and evaluated on morning rounds with clinical nurse practitioner. We will transition her to by mouth medicines and discharged from the hospital. I will see her in follow-up in one week Johnson Cisneros MD FACS
== END 2018-03-18 13:57 | disposition home or self-care (01) | DRG 391 ==
LOC: EMEROOARM 02:18 → 2ANU 05:26
PROVIDERS: ADMIT Surgery; ATTEND Surgery
PROC: IRDRAIN (2018-03-10 12:00)

== ENCOUNTER 2021-11-09 11:10 | Inpatient (IN) ==
[2021-11-09] MEDS ORDERED: Ondansetron 4 MG/2 ML VIAL IVP ONE (11:52)
[2021-11-09 12:48] LABS: Hematocrit 40.7 % (35.3-44.9); Hemoglobin 14.1 g/dL (11.5-15.4); Mean Corpuscular HGB Conc 34.6 g/dL (31.6-35.5); Mean Corpuscular Hemoglobin 30.7 pg (28.0-33.3); Mean Corpuscular Volume 88.7 fL (83.0-100.0); Mean Platelet Volume 10.6 fL (9.4-12.4); Platelet Count 161 K/mcL (140-400); Red Blood Count 4.59 M/mcL (3.82-4.97); Red Cell Distribution Width 12.5 % (11.5-14.5); White Blood Count 10.5 K/mcL (4.3-11.1)
[2021-11-09 13:06] LABS: Alanine Aminotransferase 69 Units/L (7-52); Albumin 3.2 g/dL (3.5-5.7); Albumin/Globulin Ratio 0.9 (1.1-2.2); Alkaline Phosphatase 151 Units/L (34-104); Aspartate Amino Transferase 57 Units/L (13-39); BUN/Creatinine Ratio 17 (6-26); Bilirubin,Total 1.2 mg/dL (0.3-1.0); Blood Urea Nitrogen 22 mg/dL (6-20); Calcium 8.7 mg/dL (8.6-10.3); Carbon Dioxide 22 mEq/L (23-29); Creatine Kinase 23 Units/L (30-223); Ethanol < 10 mg/dL (Less than 10); Globulin 3.5 g/dL (2.4-3.5); Glucose 125 mg/dL (70-105); Lipase 15 Units/L (11-82); Magnesium 1.5 mg/dL (1.6-2.6); Total Protein 6.7 g/dL (6.4-8.9); eGFR For African Americans 52 (> 60); eGFR For Non-African Americans 43 (> 60)
[2021-11-09 13:14] LABS: Lymphocytes # 0.2 K/mcL (0.6-4.6); Platelet Estimate Normal (Normal)
[2021-11-09 13:52] LABS: Chloride 100 mEq/L (98-107); Osmolality,Calculated 277 (280-300); Sodium 131 mEq/L (136-145)
[2021-11-09 13:54] LABS: Bacteria,Urine Few per hpf (None-Few); Bilirubin,Urine Negative (Negative); Blood,Urine Small (Negative); Clarity,Urine Turbid (Clear); Color,Urine Yellow (Yellow); Glucose,Urine (UA) Normal (Normal); Ketones,Urine Negative (Negative); Leukocyte Esterase,Urine Large (Negative); Nitrite,Urine Negative (Negative); Protein,Urine 100 mg/dL (Neg-Trace); Squamous Epithelial Cell,Urine Few per hpf (None-Few); Transitional Epi Cells,Urine Few per hpf (None-Few); Urobilinogen,Urine Normal (Normal); WBC,Urine 50-100 per hpf (0-3)
[2021-11-09 13:58] LABS: Amphetamine Screen,Urine Negative ng/mL (Cutoff=1000); Barbiturate Screen,Urine Negative ng/mL (Cutoff=200); Benzodiazepines Screen,Urine Negative ng/mL (Cutoff=200); Cannabinoid Screen,Urine Negative ng/mL (Cutoff = 50); Cocaine Screen,Urine Negative ng/mL (Cutoff= 300); Opiate Screen,Urine Negative ng/mL (Cutoff=300); Phencyclidine Screen,Urine Negative ng/mL (Cutoff=25)
[2021-11-09 14:01] LABS: Adenovirus Not Detected (Not Detect); Bordetella Pertussis Not Detected (Not Detect); Chlamydophila pneumoniae Not Detected (Not Detect); Coronavirus 229E Not Detected (Not Detect); Coronavirus HKU1 Not Detected (Not Detect); Coronavirus NL63 Not Detected (Not Detect); Coronavirus OC43 Not Detected (Not Detect); Human Metapneumovirus Not Detected (Not Detect); Human Rhinovirus/Enterovirus Not Detected (Not Detect); Influenza A Subtype 2009 H1 Not Detected (Not Detect); Influenza B Not Detected (Not Detect); Mycoplasma pneumoniae Not Detected (Not Detect); Parainfluenza Virus 1 Not Detected (Not Detect); Parainfluenza Virus 2 Not Detected (Not Detect); Parainfluenza Virus 3 Not Detected (Not Detect); Parainfluenza Virus 4 Not Detected (Not Detect); Respiratory Syncytial Virus Not Detected (Not Detect); SARS-CoV-2 Not Detected (Not Detect)
[2021-11-09] MEDS ORDERED: cefTRIAXone 1,000 MG in 0.9 % Sodium Chloride Mini Bag 100 ML IVPB ONE (14:03)
[2021-11-09] MEDS ORDERED: Ketorolac 30 MG/ML VIAL IVP ONE (14:06)
[2021-11-09] MEDS ORDERED: 0.9 % Sodium Chloride 1,000 ML IVC ONE (14:06)
[2021-11-09] MEDS ORDERED: Naloxone 0.4 MG/ML INJ IVP PRN (16:32)
[2021-11-09] MEDS: 0.9 % Sodium Chloride 1,000 ML IVC SCH ×2 (18:33→22:57)
[2021-11-09] MEDS: Ondansetron 4 MG/2 ML VIAL IVP PRN (21:25)
[2021-11-09] MEDS ORDERED: *HR* Metoprolol 5 MG/5 ML VIAL IVP ONE (23:56)
[2021-11-09] MEDS ORDERED: Acetaminophen IV 1,000 MG/100 ML BAG IVPB ONE (23:57)
[2021-11-10] MEDS ORDERED: 0.9 % Sodium Chloride 1,000 ML IVC ONE (00:47)
[2021-11-10] MEDS ORDERED: *HR* Metoprolol 5 MG/5 ML VIAL IVP ONE (00:48)
[2021-11-10] MEDS: 0.9 % Sodium Chloride 1,000 ML IVC SCH (03:33)
[2021-11-10 06:21] LABS: CTX-M ESBL Gene Not Detected (Not Detect); IMP Carbapenem-Resist Gene Not Detected (Not Detect); NDM Carbapenem-Resist Gene Not Detected (Not Detect); OXA-48-like Carbap-Resist Gene Not Detected (Not Detect); VIM Carbapenem-Resist Gene Not Detected (Not Detect); blaKPC Carbapenem-Resist Gene Not Detected (Not Detect)
[2021-11-10 06:22] LABS: A.calcoaceticus-baumannii cplx Not Detected (Not Detect); Bacteroides fragilis by PCR Not Detected (Not Detect); Candida albicans by PCR Not Detected (Not Detect); Candida auris by PCR Not Detected (Not Detect); Candida glabrata by PCR Not Detected (Not Detect); Candida krusei by PCR Not Detected (Not Detect); Candida parapsilosis by PCR Not Detected (Not Detect); Candida tropicalis by PCR Not Detected (Not Detect); Crypto. neoformans/gattii PCR Not Detected (Not Detect); Enterobacter cloacae Cmplx PCR Not Detected (Not Detect); Enterobacterales by PCR Not Detected (Not Detect); Enterococcus faecalis by PCR Not Detected (Not Detect); Enterococcus faecium by PCR Not Detected (Not Detect); Escherichia coli by PCR Not Detected (Not Detect); Klebs. pneumoniae group by PCR Not Detected (Not Detect); Klebsiella aerogenes by PCR Not Detected (Not Detect); Klebsiella oxytoca by PCR Not Detected (Not Detect); Proteus by PCR DETECTED (Not Detect); Pseudomonas aeruginosa by PCR Not Detected (Not Detect); Salmonella species by PCR Not Detected (Not Detect); Serratia marcescens by PCR Not Detected (Not Detect); Staph epidermidis by PCR Not Detected (Not Detect); Staph lugdunensis by PCR Not Detected (Not Detect); Staphylococcus aureus by PCR Not Detected (Not Detect); Staphylococcus by PCR Not Detected (Not Detect); Stenotrophomonas maltophilia Not Detected (Not Detect); Streptococcus agalactiae(B)PCR Not Detected (Not Detect); Streptococcus by PCR Not Detected (Not Detect); Streptococcus pneumoniae PCR Not Detected (Not Detect); Streptococcus pyogenes (A) PCR Not Detected (Not Detect)
[2021-11-10 07:11] LABS: Hematocrit 32.8 % (35.3-44.9); Mean Corpuscular HGB Conc 34.1 g/dL (31.6-35.5); Mean Corpuscular Hemoglobin 30.9 pg (28.0-33.3); Mean Corpuscular Volume 90.4 fL (83.0-100.0); Mean Platelet Volume 10.8 fL (9.4-12.4); Platelet Count 116 K/mcL (140-400); Red Blood Count 3.63 M/mcL (3.82-4.97); Red Cell Distribution Width 12.9 % (11.5-14.5)
[2021-11-10 07:18] LABS: Hemoglobin 11.2 g/dL (11.5-15.4); White Blood Count 16.1 K/mcL (4.3-11.1)
[2021-11-10 07:19] LABS: INR 1.6; Prothrombin Time 17.4 Seconds (9.4-12.1)
[2021-11-10 07:30] LABS: Eosinophils # 0.3 K/mcL (0.0-0.6); Neutrophils # 13.9 K/mcL (1.6-8.9); Platelet Estimate Normal (Normal)
[2021-11-10 07:31] LABS: Acetaminophen < 10 mcg/mL (10-20); BUN/Creatinine Ratio 19 (6-26); Blood Urea Nitrogen 24 mg/dL (6-20); Calcium 7.7 mg/dL (8.6-10.3); Carbon Dioxide 21 mEq/L (23-29); Chloride 108 mEq/L (98-107); Glucose 131 mg/dL (70-105); Magnesium 1.9 mg/dL (1.6-2.6); Osmolality,Calculated 286 (280-300); Potassium 3.3 mEq/L (3.5-5.1); Sodium 135 mEq/L (136-145); eGFR For African Americans 52 (> 60); eGFR For Non-African Americans 43 (> 60)
[2021-11-10] MEDS: Ondansetron 4 MG/2 ML VIAL IVP PRN (07:39)
[2021-11-10] MEDS ORDERED: cefTRIAXone 1,000 MG in Water for inj. (sterile) 10 ML IVP SCH (09:00)
[2021-11-10] MEDS ORDERED: Acetaminophen 325 MG TABLET PO PRN ×2 (14:11→16:46)
[2021-11-10] MEDS ORDERED: *HR* FentaNYL (PF) 100 MCG/2 ML VIAL ONE (15:19)
[2021-11-10] MEDS ORDERED: Ondansetron 4 MG/2 ML VIAL ONE (15:19)
[2021-11-10] MEDS ORDERED: *HR* Midazolam HCl 2 MG/2 ML VIAL ONE (15:19)
[2021-11-10] MEDS ORDERED: *HR* Propofol 200 MG/20 ML VIAL IVP ONE (15:19)
[2021-11-10] MEDS ORDERED: *HR* OxyCODONE Immed Rel 5 MG TABLET PO PRN (15:35)
[2021-11-10] MEDS ORDERED: *HR* HYDROmorphone PF 0.5 MG/0.5 ML SYRINGE IVP PRN (15:35)
[2021-11-10] MEDS ORDERED: Famotidine 20 MG/2 ML VIAL ONE (15:41)
[2021-11-10] MEDS ORDERED: *HR* Succinylcholine 200 MG/10 ML VIAL IVP ONE (15:49)
[2021-11-10] MEDS ORDERED: Lidocaine -MPF 4% 5 ML AMPUL ONE (15:49)
[2021-11-10] MEDS ORDERED: Isovue-300 50ML VIAL ONE (16:20)
[2021-11-10] MEDS ORDERED: Ondansetron 4 MG/2 ML VIAL IVP PRN (16:46)
[2021-11-10] MEDS ORDERED: Naloxone 0.4 MG/ML INJ IVP PRN (16:46)
[2021-11-11 06:54] LABS: Hematocrit 37.2 % (35.3-44.9); Hemoglobin 12.4 g/dL (11.5-15.4); Lymphocytes # 0.7 K/mcL (0.6-4.6); Mean Corpuscular HGB Conc 33.3 g/dL (31.6-35.5); Mean Corpuscular Hemoglobin 30.1 pg (28.0-33.3); Mean Corpuscular Volume 90.3 fL (83.0-100.0); Mean Platelet Volume 11.6 fL (9.4-12.4); Platelet Count 167 K/mcL (140-400); Red Blood Count 4.12 M/mcL (3.82-4.97); Red Cell Distribution Width 13.3 % (11.5-14.5); White Blood Count 16.2 K/mcL (4.3-11.1)
[2021-11-11 07:15] LABS: BUN/Creatinine Ratio 22 (6-26); Blood Urea Nitrogen 22 mg/dL (6-20); Calcium 8.4 mg/dL (8.6-10.3); Carbon Dioxide 24 mEq/L (23-29); Chloride 107 mEq/L (98-107); Glucose 160 mg/dL (70-105); Osmolality,Calculated 291 (280-300); Potassium 3.7 mEq/L (3.5-5.1); Sodium 137 mEq/L (136-145); eGFR For African Americans > 60 (> 60); eGFR For Non-African Americans 58 (> 60)
[2021-11-11 08:32] LABS: Monocytes # 0.7 K/mcL (0.0-1.3); Neutrophils # 14.9 K/mcL (1.6-8.9); Platelet Estimate Normal (Normal)
[2021-11-11] MEDS ORDERED: cefTRIAXone 1,000 MG in 0.9 % Sodium Chloride 10 ML IVP SCH (09:00)
[2021-11-11] MEDS ORDERED: cefTRIAXone 1,000 MG in 0.9 % Sodium Chloride 10 ML IVP ONE (11:13)
[2021-11-11] MEDS: *HR* Heparin 5,000 UNIT/ML VIAL SQ SCH ×2 (14:36→20:28)
[2021-11-12 01:32] LABS: Basophils % 0.1 %; Eosinophils % 0.1 %; Hematocrit 33.7 % (35.3-44.9); Hemoglobin 11.9 g/dL (11.5-15.4); Immature Granulocytes % 1.8 % (0-4); Lymphocytes # 1.4 K/mcL (0.6-4.6); Lymphocytes % 7.1 %; Mean Corpuscular HGB Conc 35.3 g/dL (31.6-35.5); Mean Corpuscular Hemoglobin 31.4 pg (28.0-33.3); Mean Corpuscular Volume 88.9 fL (83.0-100.0); Mean Platelet Volume 11.5 fL (9.4-12.4); Monocytes # 0.8 K/mcL (0.0-1.3); Monocytes % 3.8 %; Neutrophils # 17.6 K/mcL (1.6-8.9); Platelet Count 182 K/mcL (140-400); Red Blood Count 3.79 M/mcL (3.82-4.97); Red Cell Distribution Width 13.3 % (11.5-14.5); Segmented Neutrophils % 87.1 %; White Blood Count 20.2 K/mcL (4.3-11.1)
[2021-11-12 01:51] LABS: BUN/Creatinine Ratio 26 (6-26); Blood Urea Nitrogen 25 mg/dL (6-20); Calcium 8.2 mg/dL (8.6-10.3); Carbon Dioxide 24 mEq/L (23-29); Chloride 107 mEq/L (98-107); Glucose 129 mg/dL (70-105); Osmolality,Calculated 292 (280-300); Potassium 3.4 mEq/L (3.5-5.1); Sodium 138 mEq/L (136-145); eGFR For African Americans > 60 (> 60); eGFR For Non-African Americans 60 (> 60)
[2021-11-12 01:52] LABS: Albumin 2.7 g/dL (3.5-5.7); Albumin/Globulin Ratio 0.8 (1.1-2.2); Bilirubin,Indirect 0.4 mg/dL (0.0-1.0); Bilirubin,Total 0.4 mg/dL (0.3-1.0); Globulin 3.2 g/dL (2.4-3.5); Total Protein 5.9 g/dL (6.4-8.9)
[2021-11-12] MEDS: *HR* Heparin 5,000 UNIT/ML VIAL SQ SCH (05:31)
[2021-11-12] MEDS ORDERED: cefTRIAXone 2,000 MG in 0.9 % Sodium Chloride 20 ML IVP SCH ×2 (08:00→09:00)
[2021-11-12 10:46] VITALS: BP 124/71; PULSE 68; TEMP 98.1; O2SAT 96
[2021-11-12 11:30] LABS: Basophils % 0.2 %; Eosinophils % 0.2 %; Hematocrit 35.6 % (35.3-44.9); Hemoglobin 12.4 g/dL (11.5-15.4); Immature Granulocytes % 1.7 % (0-4); Lymphocytes # 1.3 K/mcL (0.6-4.6); Mean Corpuscular HGB Conc 34.8 g/dL (31.6-35.5); Mean Corpuscular Hemoglobin 31.1 pg (28.0-33.3); Mean Corpuscular Volume 89.2 fL (83.0-100.0); Monocytes # 0.8 K/mcL (0.0-1.3); Monocytes % 4.7 %; Neutrophils # 15.5 K/mcL (1.6-8.9); Platelet Count 216 K/mcL (140-400); Red Blood Count 3.99 M/mcL (3.82-4.97); Red Cell Distribution Width 13.2 % (11.5-14.5); Segmented Neutrophils % 86.2 %
== END 2021-11-12 14:12 | disposition home or self-care (01) | DRG 854 ==
LOC: EMEROOARM 11:10 → 2ANU 11:10 → SUATTDRO 16:29 → 2ANU 17:16
PROVIDERS: ADMIT Pharmacist; ATTEND Student in an Organized Health Care Education/Training Program